=== PATIENT | male | born 1955 | race Asian ===

== ENCOUNTER 2016-12-05 22:32 | Inpatient (IN) | payer SELFPAY ==
[~2016-12-05] VITALS: Ht 170.2 cm; Wt 72.0 kg
[2016-12-05] MEDS ORDERED: ACETAMINOPHEN 325 MG TAB PO ONE (22:45)
[2016-12-05] MEDS ORDERED: diphenhydrAMINE HCL 50 MG/ML VIAL IVP ONE (22:45)
[2016-12-05] MEDS: SODIUM CHLORIDE 0.9% FLUSH 10 ML FLUSH IVF PRN ×2 (22:46→23:13)
--- NOTE | 2016-12-05 22:48 | RADRPT ---
EXAM DATE/TIME: 12/05/2016 22:31 [facility] COMPARISON: No previous studies available for comparison. INDICATIONS : Sudden onset headache with hypertension; rule out bleed. RADIATION DOSE: 56.35 CTDIvol (mGy) MEDICAL HISTORY : Non-responsive. SURGICAL HISTORY : Non-responsive. ENCOUNTER: Initial ACUITY: 1 day PAIN SCALE: Non-responsive LOCATION: cranial TECHNIQUE: Multiple contiguous axial images were obtained of the head. Using automated exposure control and adj ustment of the mA and/or kV according to patient size, radiation dose was kept as low as reasonably a chievable to obtain optimal diagnostic quality images. FINDINGS: CEREBRUM: The ventricles are normal for age. No evidence of midline shift, mass lesion, hemorrhage or acute in farction. No extra-axial fluid collections are seen. POSTERIOR FOSSA: The cerebellum and brainstem are intact. The 4th ventricle is midline. The cerebellopontine angle i s unremarkable. EXTRACRANIAL: The visualized portion of the orbits is intact. SKULL: The calvaria is intact. No evidence of skull fracture. CONCLUSION: No acute disease. Gilmar Richardson MD on December 05, 2016 at 22:46 Board Certified Radiologist. This report was verified electronically.
[2016-12-05 22:53] VITALS: BP 140/87; PULSE 70; RESP 18; TEMP 98.3; O2SAT 99
[2016-12-05] MEDS ORDERED: PROCHLORPERAZINE INJ 10 MG/2 ML VIAL IV PUSH ONE (23:00)
[2016-12-05 23:13] VITALS: RESP 16; O2SAT 98
--- NOTE | 2016-12-05 23:19 | PD ---
HPI Chief Complaint: Neuro Symptoms/ Deficits Time Seen by Provider: 22:35 Travel History International Travel<30 days: No Contact w/Intl Traveler<30days: No Traveled to known affect area: No History of Present Illness HPI The patient is a 61-year-old predominantly Georgian speaking male. Translation services provided to EMS by the patient's and by the [employer] phone translation service. The patient reports a sudden onset right headache in the parietal occipital distribution along with neck pain. Projectile vomiting was observed by EMS. He felt weak suddenly fell to the ground. Vertiginous dizziness is reported. EMS reports his blood pressure at that time was 182/95. EMS also reports some twitching movements towards the right side however the patient was conscious throughout the episode. Episode lasted a few seconds. Patient reports eating [place] food prior to onset of symptoms. He has 3 months prior a similar episode occurred, predominantly vertiginous dizziness PFSH Social History Tobacco Use: No Allergies-Medications (Allergen,Severity, Reaction): Coded Allergies: No Known Allergies (Unverified , 12/05/16) Reported Meds & Prescriptions Reported Meds & Active Scripts Active No Active Prescriptions or Reported Medications Review of Systems Except as stated in HPI: all other systems reviewed are Neg General / Constitutional: No: Fever, Chills HENT: Positive: Headaches, Vertigo Cardiovascular: No: Chest Pain or Discomfort Physical Exam Narrative GENERAL: 61-year-old male Georgian speaking well-nourished well-developed moderate distress SKIN: Warm and dry. HEAD: Atraumatic. Normocephalic. EYES: Pupils equal and round. No scleral icterus. No injection or drainage. Minimal horizontal nystagmus toward right. ENT: No nasal bleeding or discharge. Mucous membranes pink and moist. NECK: Trachea midline. No JVD. CARDIOVASCULAR: Regular rate and rhythm. RESPIRATORY: No accessory muscle use. Clear to auscultation. Breath sounds equal bilaterally. GASTROINTESTINAL: Abdomen soft, non-tender, nondistended. Hepatic and splenic margins not palpable. MUSCULOSKELETAL: Extremities without clubbing, cyanosis, or edema. No obvious deformities. NEUROLOGICAL: Cranial nerves III through XII are normal. Patient has no pronator drift. Motor function in all 4 extremities is 5 over 5. Tests of cerebellar function intact. Family confirms that his speech is normal. Memory mentation normal. PSYCHIATRIC: Appropriate mood and affect; insight and judgment normal. Data Data Last Documented VS Vital Signs Date Time Temp Pulse Resp B/P Pulse Ox O2 Delivery O2 Flow Rate FiO2 12/06/16 02:00 72 18 140/77 95 Nasal Cannula 3 12/05/16 22:53 98.3 Vital signs reviewed Orders Complete Blood Count With Diff (12/05/16 22:35) Comprehensive Metabolic Panel (12/05/16 22:35) Prothrombin Time / Inr (Pt) (12/05/16 22:35) Act Partial Throm Time (Ptt) (12/05/16 22:35) Ct Brain W/O Iv Contrast(Rout) (12/05/16 22:35) Ecg Monitoring (12/05/16 22:35) Iv Access Insert/Monitor (12/05/16 22:35) Oximetry (12/05/16 22:35) Sodium Chloride 0.9% Flush (Ns Flush) (12/05/16 22:45) Acetaminophen (Tylenol) (12/05/16 22:45) Diphenhydramine Inj (Benadryl Inj) (12/05/16 22:45) Prochlorperazine Inj (Compazine Inj) (12/05/16 23:00) Sodium Chloride 0.9% Flush (Ns Flush) (12/05/16 23:30) Potassium Chloride (Kcl) (12/06/16 00:00) Potassium Chlor 20 Meq Premix (Kcl 20 Me (12/06/16 00:00) Morphine Inj (Morphine Inj) (12/06/16 00:00) Cta Brain W Iv Contrast W 3d (12/06/16 ) Cta Neck W Iv Contrast W 3d (12/06/16 ) Iohexol 350 Inj (Omnipaque 350 Inj) (12/06/16 01:13) Lorazepam Inj (Ativan Inj) (12/06/16 03:15) Calcium Gluconate Inj (Calcium Gluconate (12/06/16 03:15) Meclizine (Antivert) (12/06/16 03:15) Place In Observation (12/06/16 ) Vital Signs (Adult) Q4H (12/06/16 03:21) Neuro Checks Q4H (12/06/16 03:21) Activity Oob With Assistance (12/06/16 03:21) Sand Operator / Telemetry .CONTINUOUS (12/06/16 03:21) Diet Regular Basic (12/06/16 Breakfast) Sodium Chlor 0.9% 1000 Ml Inj (Ns 1000 M (12/06/16 03:21) Sodium Chloride 0.9% Flush (Ns Flush) (12/06/16 03:30) Sodium Chloride 0.9% Flush (Ns Flush) (12/06/16 09:00) Ondansetron Inj (Zofran Inj) (12/06/16 03:30) Bisacodyl Supp (Dulcolax Supp) (12/06/16 03:30) Comprehensive Metabolic Panel (12/06/16 06:00) Complete Blood Count With Diff (12/07/16 06:00) Scd Bilateral/Knee High CASANDRA.BID (12/06/16 03:21) Monico Bilateral/Knee High CASANDRA.QSHIFT (12/06/16 03:21) Acetaminophen (Tylenol) (12/06/16 03:30) Acetamin-Hydrocod 325-5 Mg ([place] 5-325 (12/06/16 03:30) Morphine Inj (Morphine Inj) (12/06/16 03:30) Lorazepam Inj (Ativan Inj) (12/06/16 03:30) Consult Pt Eval & Treat (12/06/16 03:22) Urinalysis - C+S If Indicated (12/06/16 03:23) Admit Order (Ed Use Only) (12/06/16 04:14) Labs Laboratory Tests Test 12/05/16 23:00 White Blood Count 5.7 TH/MM3 Red Blood Count 3.99 MIL/MM3 Hemoglobin 12.1 GM/DL Hematocrit 35.7 % Mean Corpuscular Volume 89.4 FL Mean Corpuscular Hemoglobin 30.3 PG Mean Corpuscular Hemoglobin 33.9 % Concent Red Cell Distribution Width 13.3 % Platelet Count 161 TH/MM3 Mean Platelet Volume 8.4 FL Neutrophils (%) (Auto) 49.2 % Lymphocytes (%) (Auto) 42.2 % Monocytes (%) (Auto) 5.8 % Eosinophils (%) (Auto) 2.4 % Basophils (%) (Auto) 0.4 % Neutrophils # (Auto) 2.8 TH/MM3 Lymphocytes # (Auto) 2.4 TH/MM3 Monocytes # (Auto) 0.3 TH/MM3 Eosinophils # (Auto) 0.1 TH/MM3 Basophils # (Auto) 0.0 TH/MM3 CBC Comment DIFF FINAL Differential Comment Prothrombin Time 10.7 SEC Prothromb Time International 1.0 RATIO Ratio Activated Partial 25.2 SEC Thromboplast Time Sodium Level 144 MEQ/L Potassium Level 2.6 MEQ/L Chloride Level 110 MEQ/L Carbon Dioxide Level 23.4 MEQ/L Anion Gap 11 MEQ/L Blood Urea Nitrogen 20 MG/DL Creatinine 1.31 MG/DL Estimat Glomerular Filtration 56 ML/MIN Rate Random Glucose 108 MG/DL Calcium Level 7.3 MG/DL Protein Corrected Calcium 7.8 MG/DL Total Bilirubin 0.2 MG/DL Aspartate Amino Transf 16 U/L (AST/SGOT) Alanine Aminotransferase 22 U/L (ALT/SGPT) Alkaline Phosphatase 65 U/L Total Protein 6.2 GM/DL Albumin 3.3 GM/DL MDM Medical Decision Making Medical Screen Exam Complete: Yes Emergency Medical Condition: Yes Medical Record Reviewed: Yes Differential Diagnosis Central vertigo, peripheral vertigo, subarachnoid hemorrhage, migraine, cluster headache, tension headache Narrative Course CBC & BMP Diagram 12/05/16 23:00 Protein corrected calcium 7.8 LFTs otherwise essentially normal INR 1.0 EKG reveals a sinus rhythm normal axis intervals rate 64 Last 24 hours Impressions Neck CTA 12/06/16 0000 Signed Impressions: Service Date/Time: Tuesday, December 06, 2016 01:01 - CONCLUSION: No significant arterial vascular abnormality is identified in the neck. Trell Hill MD Head CTA 12/06/16 0000 Signed Impressions: Service Date/Time: Tuesday, December 06, 2016 01:01 - CONCLUSION: No acute intracranial vascular abnormality is identified. Trell Hill MD Head CT 12/05/16 2235 Signed Impressions: Service Date/Time: Monday, December 05, 2016 22:31 - CONCLUSION: No acute disease. Gilmar Richardson MD Patient refused LP. Head CTA normal. He received a therapy for cephalgia with good effect. Minimal persistent vertigo reported at approximately 3 AM. 1 mg Ativan ordered. The patient will be admitted due to the hypokalemia. IV and oral potassium orders placed. D/w Dr Wells Critical Care Narrative Aggregate critical care time was 35 minutes. Time to perform other separately billable procedures was not included in the critical care time. My time did not include minutes spent treating any other patients simultaneously or on activities that did not directly contribute to the patient's treatment. The services I provided to this patient were to treat and/or prevent clinically significant deterioration that could result in: Permanent neurologic deficit I provided critical care services requiring my management, as noted below: Chart data review, documentation time, medication orders and management, vital sign assessments/reviewing monitor data, ordering and reviewing lab tests, ordering and interpreting/reviewing x-rays and diagnostic studies, care of the patient and discussion of the patient with the admitting physicians. Diagnosis Primary Impression: Vertigo Additional Impressions: Nausea & vomiting Qualified Code: R11.2 - Nausea and vomiting, intractability of vomiting not specified, unspecified vomiting type Hypokalemia Hypocalcemia Cephalgia Qualified Code: R51 - Acute nonintractable headache, unspecified headache type Admitting Information Admitting Physician Requests: Admit Scripts No Active Prescriptions or Reported Meds Tom Martin MD Dec 05, 2016 23:19
[2016-12-05] MEDS ORDERED: SODIUM CHLORIDE 0.9% FLUSH 10 ML FLUSH IVF PRN (23:30)
[2016-12-05 23:33] LABS: AUTOMATED NEUTROPHIL # 2.8 TH/MM3 (1.8-7.7); BASOPHIL % 0.4 % (0.0-2.0); EOSINOPHIL # 0.1 TH/MM3 (0-0.4); EOSINOPHIL % 2.4 % (0.0-4.0); HEMATOCRIT 35.7 % (39.0-51.0); HEMO FLAGS DIFF FINAL; LYMPH % 42.2 % (9.0-44.0); LYMPHOCYTE # 2.4 TH/MM3 (1.0-4.8); MEAN CELL VOLUME 89.4 FL (80.0-100.0); MEAN CORPUSCULAR HEMOGLOBIN 30.3 PG (27.0-34.0); MEAN CORPUSCULAR HGB CONC 33.9 % (32.0-36.0); MONO % 5.8 % (0.0-8.0); NEUT % 49.2 % (16.0-70.0); PLATELET COUNT 161 TH/MM3 (150-450); RED BLOOD COUNT 3.99 MIL/MM3 (4.50-5.90); RED CELL DISTRIBUTION WIDTH 13.3 % (11.6-17.2); WHITE BLOOD COUNT 5.7 TH/MM3 (4.0-11.0)
[2016-12-05 23:40] LABS: APTT (PATIENT) 25.2 SEC (24.3-30.1); PROTHROMBIN TIME - PATIENT 10.7 SEC (9.8-11.6)
[2016-12-05 23:43] LABS: BICARBONATE 23.4 MEQ/L (21.0-32.0); CALCIUM-PROTEIN CORRECTED 7.8 MG/DL (8.5-10.1); TOTAL BILIRUBIN ADULT 0.2 MG/DL (0.2-1.0)
[2016-12-05 23:47] LABS: POTASSIUM 2.6 MEQ/L (3.5-5.1)
[2016-12-06] MEDS ORDERED: MORPHINE SULFATE 4 MG/ML INJ IV PUSH ONE
[2016-12-06] MEDS ORDERED: POTASSIUM CHLORIDE 20 MEQ CONTROLLED RELEASE TAB PO ONE
[2016-12-06] MEDS: SODIUM CHLORIDE 0.9% FLUSH 10 ML FLUSH IVF PRN (00:10)
[2016-12-06] MEDS: POTASSIUM CHLOR 20 MEQ PREMIX 100 ML IV SCH ×2 (00:10→01:59)
[2016-12-06] MEDS ORDERED: IOHEXOL 350 MG/ML 10 ML VIAL (for RAD DIAG) IV ONE (01:13)
[2016-12-06 02:00] VITALS: BP 140/77; PULSE 72; RESP 18; O2SAT 95
--- NOTE | 2016-12-06 02:37 | RADRPT ---
EXAM DATE/TIME: 12/06/2016 01:01 [facility] COMPARISON: No previous studies available for comparison. INDICATIONS : Sudden onset headache with hypertension. IV CONTRAST: 75 cc Omnipaque 350 (iohexol) IV ; Cumulative dose for multiple exams. RADIATION DOSE: 14.91 CTDIvol (mGy) ; Combined studies MEDICAL HISTORY : Renal insufficiency. SURGICAL HISTORY : None. ENCOUNTER: Initial ACUITY: 1 day PAIN SCALE: 8/10 LOCATION: cranial TECHNIQUE: Volumetric scanning was performed using a multi-row detector CT scanner. The data was post processed with a variety of visualization algorithms including full volume maximum intensity projection, multi -planar sliding thin slab reformation, curved planar reformation, and surface rendering techniques. Using automated exposure control and adjustment of the mA and/or kV according to patient size, radiat ion dose was kept as low as reasonably achievable to obtain optimal diagnostic quality images. FINDINGS: Anterior circulation: The internal carotid arteries demonstrate mild atherosclerotic change. Right A1 segment is hypoplasti c. Anterior cerebral arteries are symmetric. The middle cerebral artery branches demonstrate symmetri c enhancement. No aneurysm or high-grade stenosis is identified. Posterior circulation: There is persistent circulation on the right. The left vertebral artery is dominant. The basila r artery and left posterior cerebral artery arteries demonstrate no significant stenosis or abnormali ty. No aneurysm is visualized. CONCLUSION: No acute intracranial vascular abnormality is identified. Trell Hill MD on December 06, 2016 at 2:31 Board Certified Radiologist. This report was verified electronically.
--- NOTE | 2016-12-06 02:48 | RADRPT ---
EXAM DATE/TIME: 12/06/2016 01:01 [facility] COMPARISON: No previous studies available for comparison. INDICATIONS : Sudden onset headache with hypertension; IV CONTRAST: 75 cc Omnipaque 350 (iohexol) IV ; Cumulative dose for multiple exams. RADIATION DOSE: 14.91 CTDIvol (mGy) ; Combined studies MEDICAL HISTORY : Renal insufficiency. SURGICAL HISTORY : None. ENCOUNTER: Initial ACUITY: 1 day PAIN SCALE: 8/10 LOCATION: cranial Elevated flow velocities and ICA/CCA ratios have been found to correlate with increased degrees of vessel stenosis, calculated as percentage of diameter relative to a normal segment of distal ICA/CCA. TECHNIQUE: Volumetric scanning was performed using a multirow detector CT scanner. The data was post processed with a variety of visualization algorithms including full-volume maximum intensity projection, multip lanar sliding thin-slab reformation, curved-planar reformation, and surface-rendering techniques. Us ing automated exposure control and adjustment of the mA and/or kV according to patient size, radiatio n dose was kept as low as reasonably achievable to obtain optimal diagnostic quality images. FINDINGS: AORTIC ARCH: There is a three-vessel origin of the great vessels from the aorta. No evidence of ostial narrowing. RIGHT CAROTID: The common carotid artery is intact. The carotid bulb has a normal configuration without ulceration o r narrowing. There is minimal noncalcified plaque in the carotid bulb. The external carotid artery i s intact. LEFT CAROTID: The common carotid artery is intact. The carotid bulb has a normal configuration without ulceration or narrowing. The internal carotid artery lumen is smooth without stenosis. The external carotid ar ganga is intact. VERTEBRALS: The left vertebral artery is dominant. The vertebral arteries are less not fully visualized due to to venous contamination. CONCLUSION: No significant arterial vascular abnormality is identified in the neck. Trell Hill MD on December 06, 2016 at 2:44 Board Certified Radiologist. This report was verified electronically.
[2016-12-06] MEDS ORDERED: CALCIUM GLUCONATE 10% 1 GM/10 ML VIAL IV PUSH ONE (03:15)
[2016-12-06] MEDS ORDERED: MECLIZINE HCL 25 MG TAB PO PRN (03:15)
[2016-12-06] MEDS ORDERED: LORazepam 2 MG/ML VIAL IV PUSH ONE (03:15)
[2016-12-06] MEDS ORDERED: ONDANSETRON HCL 4 MG/2 ML VIAL IVP PRN (03:30)
[2016-12-06] MEDS ORDERED: MORPHINE SULFATE 4 MG/ML INJ IV PRN (03:30)
[2016-12-06] MEDS ORDERED: SODIUM CHLORIDE 0.9% FLUSH 10 ML FLUSH IV FLUSH PRN (03:30)
[2016-12-06] MEDS ORDERED: ACETAMINOPHEN/HYDROcodone 325 MG/5 MG TAB PO PRN (03:30)
[2016-12-06] MEDS ORDERED: BISACODYL 10 MG SUPP RECTAL PRN (03:30)
[2016-12-06] MEDS ORDERED: LORazepam 2 MG/ML VIAL IV PUSH PRN (03:30)
--- NOTE | 2016-12-06 03:56 | HHI.HP ---
[facility] No Primary Care Physician Admission Diagnosis Diagnoses: (1) Vertigo Diagnosis: Principal (2) Nausea & vomiting Diagnosis: Principal (3) Hypocalcemia Diagnosis: Principal (4) Hypokalemia Diagnosis: Principal (5) MIGUEL (acute kidney injury) Diagnosis: Principal Travel History International Travel<30 Days: No Contact w/Intl Traveler <30 Da: No Traveled to Known Affected Are: No History of Present Illness This is a 61-year-old French male with no significant PMH was brought to the ER by EMS secondary to acute onset of headache, dizziness, nausea and vomiting starting earlier this evening. Pt is non-Indonesian speaking, history obtained from [employer] services, pt's and sons also available for translation. Per report, pt and visiting [facility], had dinner at [employer], shortly after pt complained of dizziness, headache and had multiple episodes of nausea/vomiting. On arrival, BP 140/87, HR 70, O2 sat 99% on RA, Afebrile. CBC essentially unremarkable. K+ 2.6. Creatinine 1.31, no previous labs for comparison. Ca 7.3. INR 1.0. CT Head negative for acute findings. In light of symptoms, pt offered LP by ER physician, however pt declined. CTA Head/Neck negative for acute findings. S/p Compazine, Benadryl and Morphine w/ some improvement. Review of Systems Except as stated in HPI: all other systems reviewed are Neg ROS: 14 point review of systems otherwise negative. Past Family Social History Past Medical History PMH: None Past Surgical History PAST SURGICAL HISTORY: None Allergies: Coded Allergies: No Known Allergies (Unverified , 12/05/16) Family History PAST FAMILY HISTORY: Reviewed. No h/o DM or CAD Social History PAST SOCIAL HISTORY: Negative for alcohol, tobacco or drugs. Physical Exam Vital Signs Vital Signs Date Time Temp Pulse Resp B/P Pulse Ox O2 Delivery O2 Flow Rate FiO2 12/06/16 02:00 72 18 140/77 95 Nasal Cannula 3 12/05/16 23:13 16 98 Nasal Cannula 3 12/05/16 22:53 98.3 70 18 140/87 99 Physical Exam PE: GENERAL: Middle-aged male in no acute distress, resting comfortably after medications. HEENT: PERRLA, EOMI. No scleral icterus or conjunctival pallor. No lid lag or facial droop. CARDIOVASCULAR: Regular rate and rhythm. No obvious murmurs to auscultation. No chest tenderness to palpation. RESPIRATORY: No obvious rhonchi or wheezing. Clear to auscultation. Breath sounds equal bilaterally. GASTROINTESTINAL: Abdomen soft, non-tender, nondistended. BS normal. MUSCULOSKELETAL: Extremities without clubbing, cyanosis, or edema. No obvious deformities. NEUROLOGICAL: Sleeping, easily arousable. No focal neurologic deficits. Moving both upper and lower extremities spontaneously. Laboratory Laboratory Tests Test 12/05/16 23:00 White Blood Count 5.7 Red Blood Count 3.99 Hemoglobin 12.1 Hematocrit 35.7 Mean Corpuscular Volume 89.4 Mean Corpuscular Hemoglobin 30.3 Mean Corpuscular Hemoglobin 33.9 Concent Red Cell Distribution Width 13.3 Platelet Count 161 Mean Platelet Volume 8.4 Neutrophils (%) (Auto) 49.2 Lymphocytes (%) (Auto) 42.2 Monocytes (%) (Auto) 5.8 Eosinophils (%) (Auto) 2.4 Basophils (%) (Auto) 0.4 Neutrophils # (Auto) 2.8 Lymphocytes # (Auto) 2.4 Monocytes # (Auto) 0.3 Eosinophils # (Auto) 0.1 Basophils # (Auto) 0.0 CBC Comment DIFF FINAL Differential Comment Prothrombin Time 10.7 Prothromb Time International 1.0 Ratio Activated Partial 25.2 Thromboplast Time Sodium Level 144 Potassium Level 2.6 Chloride Level 110 Carbon Dioxide Level 23.4 Anion Gap 11 Blood Urea Nitrogen 20 Creatinine 1.31 Estimat Glomerular Filtration 56 Rate Random Glucose 108 Calcium Level 7.3 Protein Corrected Calcium 7.8 Total Bilirubin 0.2 Aspartate Amino Transf 16 (AST/SGOT) Alanine Aminotransferase 22 (ALT/SGPT) Alkaline Phosphatase 65 Total Protein 6.2 Albumin 3.3 Result Diagram: 12/05/16229912/05/162299 Assessment and Plan Problem List: (1) Vertigo ICD Code: R42 Status: Acute (2) Nausea & vomiting ICD Code: R11.2 Status: Acute (3) Hypokalemia ICD Code: E87.6 Status: Acute (4) Hypocalcemia ICD Code: E83.51 Status: Acute (5) MIGUEL (acute kidney injury) ICD Code: N17.9 Status: Acute Assessment and Plan A/P: 1. Vertigo: acute onset vertigo/dizziness w/ associated nausea/vomiting, reports similar episodes x3 months, has not been evaluated in the past. CT Head w/ no acute findings. LP offered by ER physician, however pt declined. CTA Head/Neck negative for acute findings, images reviewed by me. Admit for Observation, s/p Compazine/Benadryl w/ some improvement. Meclizine prn. Ativan prn if needed. IVF for hydration. PT for eval/tx 2. Nausea/Vomiting: secondary to above. Analgesics/antiemetics as needed. 3. Hypokalemia: K+ 2.6, s/p PO/IV replacement in ER, will recheck in am, replace if needed. 4. Hypocalcemia: Ca 7.3, will replace and recheck in am. 5. MIGUEL: Creatinine 1.31, no previous labs for comparison. Check U/a, IVF for hydration. Repeat labs in am. 6. DVT Prophylaxis: SCD/Teds. 7. Social work for d/c planning as needed. 8. Case discussed w/ ER physician at length. Trish Wells MD Dec 06, 2016 03:56
[2016-12-06] MEDS: SODIUM CHLOR 0.9% 1000 ML INJ 1,000 ML IV SCH ×3 (04:22→23:21)
[2016-12-06 06:14] VITALS: BP 130/80; PULSE 81; RESP 18; TEMP 97.9; O2SAT 95
[2016-12-06 07:15] LABS: ALKALINE PHOSPHATASE 63 U/L (45-117); ALT (GPT) 24 U/L (12-78); ANION GAP 8 MEQ/L (5-15); AST (GOT) 15 U/L (15-37); BLOOD UREA NITROGEN 19 MG/DL (7-18); CHLORIDE 106 MEQ/L (98-107); GLOMERULAR FILTRATION RATE 57 ML/MIN (>89); SODIUM (NA) 140 MEQ/L (136-145); TOTAL BILIRUBIN ADULT 0.4 MG/DL (0.2-1.0)
[2016-12-06] MEDS: SODIUM CHLORIDE 0.9% FLUSH 10 ML FLUSH IV FLUSH SCH ×2 (09:00→20:59)
[2016-12-06 11:52] VITALS: BP 137/88; PULSE 69; RESP 18; TEMP 98.2; O2SAT 96
[2016-12-06 12:58] VITALS: PULSE 70
[2016-12-06] MEDS: MECLIZINE HCL 25 MG TAB PO SCH ×2 (15:46→20:58)
--- NOTE | 2016-12-06 17:34 | HHI.PR ---
Subjective Remarks Follow-up for vertigo. Patient seen using translation services. RN at bedside. The patient continues to complain of dizziness and nausea whenever he changes position. He states the symptoms are improved some since yesterday. He is not sure what made him feel better. He hasn't really been able to eat anything today because he gets dizzy when he sits up. Denies any vomiting however. He denies any headache. He feels unsteady when he is on his feet. All questions answered. Objective Vitals Vital Signs Date Time Temp Pulse Resp B/P Pulse Ox O2 Delivery O2 Flow Rate FiO2 12/06/16 12:58 70 12/06/16 11:52 98.2 69 18 137/88 96 12/06/16 06:14 97.9 81 18 130/80 95 12/06/16 02:00 72 18 140/77 95 Nasal Cannula 3 12/05/16 23:13 16 98 Nasal Cannula 3 12/05/16 22:53 98.3 70 18 140/87 99 Result Diagram: 12/05/16 2300 12/06/16 0500 Imaging Last Impressions Neck CTA 12/06/16 0000 Signed Impressions: Service Date/Time: Tuesday, December 06, 2016 01:01 - CONCLUSION: No significant arterial vascular abnormality is identified in the neck. Trell Hill MD Head CTA 12/06/16 0000 Signed Impressions: Service Date/Time: Tuesday, December 06, 2016 01:01 - CONCLUSION: No acute intracranial vascular abnormality is identified. Trell Hill MD Head CT 12/05/16 2235 Signed Impressions: Service Date/Time: Monday, December 05, 2016 22:31 - CONCLUSION: No acute disease. Gilmar Richardson MD Objective Remarks GENERAL: Well-developed well-nourished. In no acute distress. SKIN: Warm and dry. No lesions noted. HEENT: Normocephalic. Pupils equal and round and reactive to light. Mucous membranes pink and moist. No nystagmus. CARDIOVASCULAR: Regular rate and rhythm. No murmur appreciated. RESPIRATORY: No accessory muscle use. Clear to auscultation. Breath sounds equal bilaterally. GASTROINTESTINAL: Abdomen soft, non-tender, nondistended. Bowel sounds x4. MUSCULOSKELETAL: No obvious deformities. No clubbing or cyanosis. No edema. NEUROLOGICAL: Awake and alert. No focal neurological deficits. Moves upper and lower extremities spontaneously. Normal speech. PSYCHIATRIC: Appropriate mood and affect; insight and judgment normal. A/P Problem List: (1) Vertigo ICD Code: R42 Status: Acute (2) Nausea & vomiting ICD Code: R11.2 Status: Acute (3) Hypokalemia ICD Code: E87.6 Status: Acute (4) Hypocalcemia ICD Code: E83.51 Status: Acute (5) MIGUEL (acute kidney injury) ICD Code: N17.9 Status: Acute Assessment and Plan 61-year-old Portuguese male with no significant PMH who presented with acute onset of dizziness and nausea Vertigo: acute onset vertigo/dizziness w/ associated nausea/vomiting. Reported similar episodes x3 months, has not been evaluated in the past. CT Head w/ no acute findings. LP offered by ER physician, however pt declined. CTA Head/ Neck negative for acute findings. Meclizine scheduled. Ativan prn. PT consulted, recommended vestibular rehabilitation and improved. Supportive care with IVF and antiemetics as needed. Hypokalemia: K+ 2.6, s/p PO/IV replacement, now 4.0. Improved. Hypocalcemia: Protein corrected calcium 7.8. Given IV calcium. Now 8.6. Improved. Suspected MIGUEL: Creatinine 1.3, no previous labs for comparison. IVF for hydration. Repeat labs in am. DVT Prophylaxis: SCD/Teds. Discharge Planning Discharge planning when clinically improved. Problem Qualifiers (1) Nausea & vomiting: Qualified Code: R11.2 - Nausea and vomiting, intractability of vomiting not specified, unspecified vomiting type Kg Jeter Dec 06, 2016 17:34 Bobo Harmon DO Dec 07, 2016 15:42
[2016-12-06 19:35] VITALS: BP 149/82; PULSE 91; RESP 18; TEMP 98.2; O2SAT 97
[2016-12-06 20:35] VITALS: PULSE 90
[2016-12-07] VITALS (8 sets, daily range): BP systolic 132–165; BP diastolic 78–95; PULSE 65–96; RESP 18–20; TEMP 97.8–98.2; O2SAT 95–96
[2016-12-07] MEDS: SODIUM CHLOR 0.9% 1000 ML INJ 1,000 ML IV SCH ×4 (01:42→22:00)
[2016-12-07] MEDS: MECLIZINE HCL 25 MG TAB PO SCH ×3 (05:05→20:18)
[2016-12-07 07:18] LABS: AUTOMATED NEUTROPHIL # 7.8 TH/MM3 (1.8-7.7); BASOPHIL % 0.2 % (0.0-2.0); HEMATOCRIT 37.3 % (39.0-51.0); HEMO FLAGS DIFF FINAL; LYMPH % 12.7 % (9.0-44.0); LYMPHOCYTE # 1.2 TH/MM3 (1.0-4.8); MEAN CELL VOLUME 88.8 FL (80.0-100.0); MEAN CORPUSCULAR HEMOGLOBIN 30.3 PG (27.0-34.0); MEAN CORPUSCULAR HGB CONC 34.1 % (32.0-36.0); MONO % 3.3 % (0.0-8.0); NEUT % 83.8 % (16.0-70.0); PLATELET COUNT 182 TH/MM3 (150-450); RED CELL DISTRIBUTION WIDTH 13.4 % (11.6-17.2); WHITE BLOOD COUNT 9.3 TH/MM3 (4.0-11.0)
[2016-12-07 07:42] LABS: ANION GAP 9 MEQ/L (5-15); BICARBONATE 22.8 MEQ/L (21.0-32.0); BLOOD UREA NITROGEN 17 MG/DL (7-18); CHLORIDE 108 MEQ/L (98-107); GLOMERULAR FILTRATION RATE 61 ML/MIN (>89); MAGNESIUM 2.2 MG/DL (1.5-2.5); POTASSIUM 3.5 MEQ/L (3.5-5.1); SODIUM (NA) 140 MEQ/L (136-145)
[2016-12-07] MEDS: SODIUM CHLORIDE 0.9% FLUSH 10 ML FLUSH IV FLUSH SCH ×2 (07:58→20:16)
--- NOTE | 2016-12-07 10:28 | HHI.PR ---
Subjective Remarks Follow-up for probable vertigo. Patient seen using translation services. The patient continues to complain of dizziness whenever he opens his eyes or tries to sit up. He feels a little bit better than yesterday. He has nausea with position changes, but he was able to drink some milk today. He denies any pain. He has not been able to ambulate yet. Objective Vitals Vital Signs Date Time Temp Pulse Resp B/P Pulse Ox O2 Delivery O2 Flow Rate FiO2 12/07/16 08:30 98.0 80 18 146/78 95 12/07/16 03:38 97.8 85 18 135/85 95 12/07/16 00:09 98.2 87 19 140/80 95 12/06/16 20:35 90 12/06/16 19:35 98.2 91 18 149/82 97 12/06/16 12:58 70 12/06/16 11:52 98.2 69 18 137/88 96 Result Diagram: 12/07/16 0611 12/07/16 0611 Imaging Last Impressions Neck CTA 12/06/16 0000 Signed Impressions: Service Date/Time: Tuesday, December 06, 2016 01:01 - CONCLUSION: No significant arterial vascular abnormality is identified in the neck. Trell Hill MD Head CTA 12/06/16 0000 Signed Impressions: Service Date/Time: Tuesday, December 06, 2016 01:01 - CONCLUSION: No acute intracranial vascular abnormality is identified. Trell Hill MD Head CT 12/05/16 2235 Signed Impressions: Service Date/Time: Monday, December 05, 2016 22:31 - CONCLUSION: No acute disease. Gilmar Richardson MD Objective Remarks GENERAL: Well-developed well-nourished. In no acute distress. English speaking. SKIN: Warm and dry. No lesions noted. HEENT: Normocephalic. Pupils equal and round and reactive to light. Mucous membranes pink and moist. Mild lateral nystagmus. CARDIOVASCULAR: Regular rate and rhythm. No murmur appreciated. RESPIRATORY: No accessory muscle use. Clear to auscultation. Breath sounds equal bilaterally. GASTROINTESTINAL: Abdomen soft, non-tender, nondistended. Bowel sounds x4. MUSCULOSKELETAL: No obvious deformities. No clubbing or cyanosis. No edema. NEUROLOGICAL: Awake and alert. No focal neurological deficits. Moves upper and lower extremities spontaneously. Normal speech. PSYCHIATRIC: Appropriate mood and affect; insight and judgment normal. A/P Problem List: (1) Vertigo ICD Code: R42 Status: Acute (2) Nausea & vomiting ICD Code: R11.2 Status: Acute (3) Hypokalemia ICD Code: E87.6 Status: Acute (4) Hypocalcemia ICD Code: E83.51 Status: Acute (5) MIGUEL (acute kidney injury) ICD Code: N17.9 Status: Acute Assessment and Plan 61-year-old English male with no significant PMH who presented with acute onset of dizziness and nausea Vertigo: acute onset vertigo/dizziness w/ associated nausea/vomiting. Reported similar episodes x3 months, has not been evaluated in the past. CT Head w/ no acute findings. LP offered by ER physician, however pt declined. CTA Head/ Neck negative for acute findings. Meclizine scheduled. Ativan/Valium prn. PT consulted, recommended vestibular rehabilitation when improved. Supportive care with IVF and antiemetics as needed. Consult neurology with persistent symptoms. Hypokalemia: K+ 2.6, s/p PO/IV replacement, now 4.0. Improved. Hypocalcemia: Protein corrected calcium 7.8. Given IV calcium. Now 8.6. Improved. Suspected MIGUEL: Creatinine 1.3, no previous labs for comparison. Creatinine slightly improved with IVF for hydration. Monitor I's and O's. Hyperglycemia: Mild. Suspect patient may have borderline diabetes mellitus. Check hemoglobin A1c. DVT Prophylaxis: SCD/Teds. Discharge Planning Discharge planning when clinically improved, not ready for DC. Problem Qualifiers (1) Nausea & vomiting: Qualified Code: R11.2 - Nausea and vomiting, intractability of vomiting not specified, unspecified vomiting type Kg Jeter Dec 07, 2016 10:28 Bobo Harmon DO Dec 07, 2016 15:19
[2016-12-07] MEDS ORDERED: DIAZEPAM 2 MG TAB PO ONE (10:30)
[2016-12-07 10:54] LABS: HEMOGLOBIN A1a 0.8 %; HEMOGLOBIN A1b 1.6 %; HEMOGLOBIN Ao 86.1 %; HEMOGLOBIN P3 3.7 %
[2016-12-07 15:19] LABS: BLOOD, URINE SMALL (NEG); COMMENT (UR) CULT NOT INDICATED; CULTURE IF INDICATED CULT NOT INDICATED; GLUCOSE,URINE NEG (NEG); KETONE, URINE NEG (NEG); NITRITE,URINE NEG (NEG); PH, URINE 6.5 (5.0-8.5); URINE COLOR COLORLESS (YELLW/STRAW)
[2016-12-07] MEDS ORDERED: POTASSIUM CHLORIDE 25 MEQ EFFERVESCENT TAB PO ONE (15:30)
[2016-12-07 16:01] LABS: FREE T4 1.05 NG/DL (0.76-1.46)
[2016-12-07] MEDS ORDERED: GADODIAMIDE PF 287 MG/ML 20 ML VIAL (for RAD MRI) IV ONE (16:47)
--- NOTE | 2016-12-07 18:42 | RADRPT ---
EXAM DATE/TIME: 12/07/2016 16:34 [facility] COMPARISON: No previous studies available for comparison. INDICATIONS : Ataxia. CONTRAST: 20 cc Omniscan (gadodiamide) IV MEDICAL HISTORY : None. SURGICAL HISTORY : None. ENCOUNTER: Initial ACUITY: 1 day PAIN SCORE: 0/10 LOCATION: cranial TECHNIQUE: Multiplanar, multisequence MRI of the brain was performed both prior to and following the administrat ion of paramagnetic contrast. FINDINGS: There is an acute infarct in the medial aspect of the right cerebellar hemisphere with some suspected hemosiderin deposition anteriorly which could represent a small component of hemorrhage. There is no significant mass effect or shift. No supratentorial infarct. No abnormal extra-axial fluid. No hydro cephalus. Minimal white matter ischemic changes. CONCLUSION: 1. Acute infarct in the medial aspect of the right cerebellar hemisphere. Dino Ch MD on December 07, 2016 at 18:36 Board Certified Radiologist. This report was verified electronically.
--- NOTE | 2016-12-07 18:47 | RADRPT ---
EXAM DATE/TIME: 12/07/2016 16:34 [facility] COMPARISON: No previous studies available for comparison. INDICATIONS : Ataxia. CONTRAST: 20 cc Omniscan (gadodiamide) IV MEDICAL HISTORY : None. SURGICAL HISTORY : None. ENCOUNTER: Initial ACUITY: 1 day PAIN SCORE: 0/10 LOCATION: neck Percent stenosis is calculated using the diameter of the stenotic region over the diameter of the nor mal distal internal carotid artery. TECHNIQUE: Bolus infused MRA of the extracranial circulation was performed using a neurovascular coil. Post pro cessing was performed including rotating subvolume maximum intensity projections of each carotid marion ry, rotating full volume maximum intensity projections of both carotid arteries, sagittal and coronal sliding thin slab reformations of each carotid artery, and left oblique sliding thin slab reformatio n through the aortic arch to include the origin of the arch branch vessels. FINDINGS: The great vessel origins are patent. Both common carotid artery, internal carotid artery and external carotid arteries are patent bilaterally. Left vertebral artery is dominant and patent. There is poor flow visualized in the proximal and mid right vertebral artery. It is unclear if this is due to tech nique but it could be partially thrombosed as well. CONCLUSION: 1. Poor flow in proximal and mid right vertebral artery. Cannot exclude thrombosis or stenosis. Left vertebral and carotid arteries are patent. Dino Ch MD on December 07, 2016 at 18:41 Board Certified Radiologist. This report was verified electronically.
--- NOTE | 2016-12-07 21:21 | EKG ---
Date Performed: 12/05/2016 Time Performed: 23:27:09 PTAGE: 61 years EKG: Sinus rhythm NORMAL ECG NO PREVIOUS TRACING DOCTOR: Wisam Ledezma Interpretating Date/Time 12/07/2016 21:19:53
[2016-12-07] MEDS: [UNRECOGNIZED DRUG - REMARK] SCH (22:00)
[2016-12-07 23:28] LABS: HDL CHOLESTEROL 44.9 MG/DL (40.0-60.0); LDL CHOLESTEROL 129 MG/DL (0-99)
[2016-12-07 23:31] LABS: CREATINE KINASE 82 U/L (39-308)
[2016-12-08] VITALS (12 sets, daily range): BP systolic 121–174; BP diastolic 70–94; PULSE 52–78; RESP 14–20; TEMP 98.1–98.4; O2SAT 95–96
--- NOTE | 2016-12-08 02:42 | RADRPT ---
EXAM DATE/TIME: 12/08/2016 02:28 [facility] COMPARISON: MRI BRAIN W & W/O CONTRAST, December 07, 2016, 16:34. CT BRAIN W/O CONTRAST, December 05, 2016, 22:31. INDICATIONS : Follow up stroke. RADIATION DOSE: 38.86 CTDIvol (mGy) MEDICAL HISTORY : Cerebrovascular disease. SURGICAL HISTORY : None. ENCOUNTER: Subsequent ACUITY: 1 day PAIN SCALE: 0/10 LOCATION: cranial TECHNIQUE: Multiple contiguous axial images were obtained of the head. Using automated exposure control and adj ustment of the mA and/or kV according to patient size, radiation dose was kept as low as reasonably a chievable to obtain optimal diagnostic quality images. FINDINGS: CEREBRUM: The ventricles are normal for age. No evidence of midline shift, mass lesion, hemorrhage or acute in farction. No extra-axial fluid collections are seen. POSTERIOR FOSSA: And nonhemorrhagic infarction is seen involving the medial portion of the right cerebellar hemisphere . This is stable from the prior MRI. EXTRACRANIAL: The visualized portion of the orbits is intact. SKULL: The calvaria is intact. No evidence of skull fracture. CONCLUSION: Stable nonhemorrhagic infarction involving the right cerebellar hemisphere. Mateo Connor Jr., MD on December 08, 2016 at 2:38 Board Certified Radiologist. This report was verified electronically.
[2016-12-08] MEDS ORDERED: CHLORHEXIDINE GLUCONATE 2 % 1 PACK (2 CLOTHS)(extra cloths) TOPICAL PRN (03:00)
[2016-12-08] MEDS: CHLORHEXIDINE GLUCONATE 2 % 1 PACK (2 CLOTHS)(taper/protocol) TOPICAL SCH (04:00)
[2016-12-08] MEDS: [UNRECOGNIZED DRUG - REMARK] SCH ×3 (06:00→22:00)
[2016-12-08] MEDS: MECLIZINE HCL 25 MG TAB PO SCH ×3 (06:24→21:00)
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
[2016-12-08 06:35] LABS: MAGNESIUM 2.3 MG/DL (1.5-2.5); POTASSIUM 3.6 MEQ/L (3.5-5.1)
[2016-12-08] MEDS: SODIUM CHLORIDE 0.9% FLUSH 10 ML FLUSH IV FLUSH SCH ×2 (08:21→20:54)
--- NOTE | 2016-12-08 09:13 | HHI.PR ---
Subjective Remarks sr Objective Vital Signs Date Time Temp Pulse Resp B/P Pulse Ox O2 Delivery O2 Flow Rate FiO2 12/08/16 06:00 56 12/08/16 04:00 52 12/08/16 04:00 98.2 52 14 150/89 95 12/08/16 02:49 98.2 64 16 146/90 95 12/08/16 00:23 98.3 67 20 121/73 95 12/07/16 20:02 96 12/07/16 19:30 98.0 88 20 132/80 95 12/07/16 17:00 65 12/07/16 16:08 98.0 69 20 165/95 95 12/07/16 11:24 98.0 66 20 145/85 96 I/O 12/07/16 12/07/16 12/07/16 12/08/16 12/08/16 12/08/16 07:00 15:00 23:00 07:00 15:00 23:00 Intake Total 1840 ml 525 ml Output Total 1925 ml 600 ml Balance -85 ml -75 ml Intake Oral 840 ml 250 ml IV Total 1000 ml 275 ml Output Urine Total 1925 ml 600 ml # Bowel Movements 0 Result Diagram: 12/07/16 0611 12/08/16 0508 Other Results r cbllr cva with on mri a hemorrhagic component very near inf 4th vent and mass effect on it mra left vert dom and r is small and ratty looking Objective Remarks awake alert still dizzy and gaviria pupil= no nystag vff 5/5 nad Assessment and Plan Assessment and Plan imp the r vert may have been cause of cva fu echo and holter needs statin hold asa for now ct no blood but some on mri observe for any afib nurse to print out some strips i dw nusu last noc stable overnoc Mich Varghese MD Dec 08, 2016 09:13
[2016-12-08] MEDS ORDERED: ASPIRIN 325 MG TAB PO SCH (09:15)
[2016-12-08] MEDS ORDERED: SODIUM PHOSPHATE INJ 30 MMOL in SODIUM CHLOR 0.9% 250 ML INJ 250 ML IV ONE (11:00)
[2016-12-08] MEDS: SODIUM CHLOR 0.9% 1000 ML INJ 1,000 ML IV SCH (11:14)
[2016-12-08 13:54] LABS: ANA SCREEN NEG (NEG)
[2016-12-08] MEDS: ACETAMINOPHEN 325 MG TAB PO PRN (14:41)
--- NOTE | 2016-12-08 15:10 | EC ---
Study Study Date:12/08/2016 STUDY CONCLUSIONS SUMMARY - Left ventricle: The cavity size was normal. Wall thickness was normal. Systolic function was normal. The estimated ejection fraction was in the range of 60% to 65%. Wall motion was normal; there were no regional wall motion abnormalities. - Aortic valve: Valve area: 2.72cm^2 (Vmax). If LV function is below 40, please consider prescribing an ACEI or ARB or document rationale for non-use. PROCEDURE DATA STUDY STATUS: Elective. Procedure: Transthoracic echocardiography. Image quality was fair. Scanning was performed from the parasternal, apical, and subcostal acoustic windows. Study completion: The patient tolerated the procedure well. Transthoracic echocardiography. M-mode, complete 2D, complete spectral Doppler, and color Doppler. Height: Height: 67in. Weight: Weight: 137.7lb. Body mass index: BMI: 21.6kg/m^2. Body surface area: BSA: 1.73m^2. Patient status: Inpatient. CARDIAC ANATOMY LEFT VENTRICLE: The cavity size was normal. Wall thickness was normal. Systolic function was normal. The estimated ejection fraction was in the range of 60% to 65%. Wall motion was normal; there were no regional wall motion abnormalities. AORTIC VALVE: Trileaflet; normal thickness leaflets. Doppler: Transvalvular velocity was within the normal range. There was no stenosis. No regurgitation. Valve area: 2.72cm^2 (Vmax). Indexed valve area: 1.57cm^2/m^2 (Vmax). AORTA: Aortic root: The aortic root was normal in size. MITRAL VALVE: Structurally normal valve. Doppler: Transvalvular velocity was within the normal range. There was no evidence for stenosis. Trace regurgitation. Peak gradient: 3mm Hg (D). LEFT ATRIUM: The atrium was normal in size. RIGHT VENTRICLE: The cavity size was normal. Wall thickness was normal. PULMONIC VALVE: Doppler: Transvalvular velocity was within the normal range. There was no evidence for stenosis. No regurgitation. TRICUSPID VALVE: Structurally normal valve. Doppler: Transvalvular velocity was within the normal range. Trace regurgitation. PULMONARY ARTERY: The main pulmonary artery was normal-sized. Systolic pressure was within the normal range. RIGHT ATRIUM: The atrium was normal in size. PERICARDIUM: There was no pericardial effusion. SYSTEMIC VEINS: Inferior vena cava: The vessel was normal in size. Patient weight: 137.7lb _Ejection fraction:_ 65-75% _Fractional shortening:_ 32% up to 5Kg 5-11.5Kg 11.6-22.9Kg 23-45Kg 45-57Kg Aortic Root 7-13 <17 13-22 17-27 17-27 LA diam 6-13 <23 24-38 33-47 37-40 RVID 10-17 7-15 7-15 7-18 8-17 LVIDd 12-22 <32 24-38 33-47 37-40 LVPW 2-4 3-6 5-7 6-8 7-8 IVS 2-4 3-6 5-7 6-8 7-8 BASIC MEASUREMENTS ADULT NORMAL Left ventricle LV internal dimension, ED, chordal *39.5 mm 43-52 level, PLAX LV internal dimension, ES, chordal 30 mm 23-38 level, PLAX Fractional shortening, chordal level, *24 % >29 PLAX LV posterior wall thickness, ED 7.32 mm IVS/LVPW ratio, ED 1 <1.3 Ventricular septum Septal thickness, ED 7.35 mm Aortic valve Leaflet separation 17 mm 15-26 BASIC MEASUREMENTS ADULT NORMAL Aortic valve Leaflet separation 17 mm 15-26 Aorta Root diameter, ED 29 mm 20-37 Left atrium Anterior-posterior dimension, ES 27 mm 19-40 Anterior-posterior dimension index, ES 1.56 cm/m^2 <2.2 LA/aortic root ratio 0.93 DOPPLER MEASUREMENTS ADULT NORMAL Main pulmonary artery Pressure, S 16 mm Hg =30 Aortic valve Peak velocity, S 141 cm/s Valve area, Vmax 2.72 cm^2 Valve area index, Vmax 1.57 cm^2/m^2 Mitral valve Peak E-wave velocity 87.4 cm/s Peak A-wave velocity 74.5 cm/s Deceleration time *113 ms 150-230 Peak gradient, D 3 mm Hg Peak E/A ratio 1.2 Maximal regurgitant velocity 271 cm/s Tricuspid valve Regurgitant peak velocity 172 cm/s Peak RV-RA gradient, S 12 mm Hg Maximal regurgitant velocity 172 cm/s Systemic veins Estimated CVP 10 mm Hg Right ventricle RV pressure, S 22 mm Hg <30 Pulmonic valve Peak velocity, S 124 cm/s LEGEND: Mean values are shown as u=mean value. Asterisk (*) wong values outside specified normal range. Prepared and signed by Lobo Hathaway [id number]
--- NOTE | 2016-12-08 15:51 | HHI.PR ---
Subjective Remarks The patient was resting in bed comfortably. Family was at the bedside. The patient did complain of pain behind his eyes. Otherwise he had no weakness in his upper or lower extremities and no numbness or tingling anywhere. His family was at the bedside and their questions were answered. Discussed with nursing. Objective Vitals Vital Signs Date Time Temp Pulse Resp B/P Pulse Ox O2 Delivery O2 Flow Rate FiO2 12/08/16 14:00 64 12/08/16 12:00 77 12/08/16 12:00 98.2 77 14 144/71 96 12/08/16 10:00 77 12/08/16 08:00 98.1 54 16 174/84 95 12/08/16 08:00 54 12/08/16 06:00 56 12/08/16 04:00 52 12/08/16 04:00 98.2 52 14 150/89 95 12/08/16 02:49 98.2 64 16 146/90 95 12/08/16 00:23 98.3 67 20 121/73 95 12/07/16 20:02 96 12/07/16 19:30 98.0 88 20 132/80 95 12/07/16 17:00 65 12/07/16 16:08 98.0 69 20 165/95 95 I/O 12/07/16 12/07/16 12/07/16 12/08/16 12/08/16 12/08/16 07:00 15:00 23:00 07:00 15:00 23:00 Intake Total 1840 ml 525 ml 950 ml Output Total 1925 ml 600 ml 1500 ml Balance -85 ml -75 ml -550 ml Intake Oral 840 ml 250 ml 300 ml IV Total 1000 ml 275 ml 650 ml Output Urine Total 1925 ml 600 ml 1500 ml # Bowel Movements 0 0 Result Diagram: 12/07/16 0611 12/08/16 0508 Imaging Last Impressions Head CT 12/08/16 0400 Signed Impressions: Service Date/Time: Thursday, December 08, 2016 02:28 - CONCLUSION: Stable nonhemorrhagic infarction involving the right cerebellar hemisphere. Mateo Connor Jr., MD Neck Magnetic Resonance Angiography 12/07/16 1324 Signed Impressions: Service Date/Time: Wednesday, December 07, 2016 16:34 - CONCLUSION: 1. Poor flow in proximal and mid right vertebral artery. Cannot exclude thrombosis or stenosis. Left vertebral and carotid arteries are patent. Dino Ch MD Brain MRI 12/07/16 1324 Signed Impressions: Service Date/Time: Wednesday, December 07, 2016 16:34 - CONCLUSION: 1. Acute infarct in the medial aspect of the right cerebellar hemisphere. Dino Ch MD Neck CTA 12/06/16 0000 Signed Impressions: Service Date/Time: Tuesday, December 06, 2016 01:01 - CONCLUSION: No significant arterial vascular abnormality is identified in the neck. Trell Hill MD Head CTA 12/06/16 0000 Signed Impressions: Service Date/Time: Tuesday, December 06, 2016 01:01 - CONCLUSION: No acute intracranial vascular abnormality is identified. Trell Hill MD Objective Remarks GENERAL: Well-developed well-nourished. In no acute distress. SKIN: Warm and dry. No lesions noted. HEENT: Normocephalic. Pupils equal and round and reactive to light. Mucous membranes pink and moist. CARDIOVASCULAR: Regular rate and rhythm. No murmur appreciated. RESPIRATORY: No accessory muscle use. Clear to auscultation. Breath sounds equal bilaterally. GASTROINTESTINAL: Abdomen soft, non-tender, nondistended. Bowel sounds x4. MUSCULOSKELETAL: No obvious deformities. No clubbing or cyanosis. No edema. NEUROLOGICAL: Awake and alert. No focal neurological deficits. Moves upper and lower extremities spontaneously, 5/5 strength. Normal speech. PSYCHIATRIC: Appropriate mood and affect; insight and judgment normal. Medications and IVs Current Medications Medications (Trade) Dose Ordered Sig/[place] Route Start Time Stop Time Status Last Admin (NS Flush) 2 ml UNSCH PRN IV FLUSH 12/06/16 03:30 (NS Flush) 2 ml BID IV FLUSH 12/06/16 09:00 (Zofran Inj) 4 mg Q6H PRN IVP 12/06/16 03:30 (Dulcolax Supp) 10 mg DAILY PRN RECTAL 12/06/16 03:30 (Tylenol) 650 mg Q6H PRN PO 12/06/16 03:30 12/08/16 14:41 ([place] 5-325 Mg) 1 tab Q4H PRN PO 12/06/16 03:30 Meclizine HCl 25 mg 25 mg Q8H PO 12/06/16 13:00 12/08/16 13:28 (NS 1000 ml Inj) 1,000 ml @ 75 mls/hr [id number] IV 12/07/16 22:00 12/08/16 11:14 Miscellaneous Information "NO BLOOD THINNERS FOR PT" Q8H .XX 12/07/16 22:00 Miscellaneous Information Patient in critical care unit? Ass... [id number] .XX 12/08/16 03:00 (Chlorhexidine 2% Cloth) 3 pack DAILY@04 TOPICAL 12/08/16 04:00 12/12/16 04:01 12/08/16 04:00 Chlorhexidine Gluconate 3 pack 3 pack UNSCH PRN TOPICAL 12/08/16 03:00 12/13/16 02:58 (Sodium Phosphate Inj/NS 250 ml Inj) 260 ml @ 27.5 mls/hr ONCE ONCE IV 12/08/16 11:00 12/08/16 20:27 12/08/16 11:13 A/P Problem List: (1) Vertigo ICD Code: R42 Status: Acute (2) Nausea & vomiting ICD Code: R11.2 Status: Acute (3) Hypokalemia ICD Code: E87.6 Status: Acute (4) Hypocalcemia ICD Code: E83.51 Status: Acute (5) MIGUEL (acute kidney injury) ICD Code: N17.9 Status: Acute Assessment and Plan Acute CVA Acute onset vertigo/dizziness w/ associated nausea/vomiting. Reported similar episodes x3 months, has not been evaluated in the past. CT Head w/ no acute findings. LP offered by ER physician, however pt declined. CTA Head/Neck negative for acute findings. Neurology was consulted. MRI showed: Acute infarct in the medial aspect of the right cerebellar hemisphere. MRA showed: Poor flow in proximal and mid right vertebral artery; Cannot exclude thrombosis or stenosis. The pt was transferred to the ICU. Echo with normal EF. - repeat MRI in the AM. - neurosurgery consult pending. - LDL elevated. Statin started. - PT/ OT. - ASA on hold in setting of questionable hemorrhage. - neuro checks. - follow up with neurosurgery. Hypokalemia/ Hypophosphatemia/ Hypocalcemia Possibly s/y decreased PO intake. - replete and monitor. MIGUEL Creatinine 1.3, no previous labs for comparison. - continue IVFs. - check urine sodium and creatinine. DVT Prophylaxis: SCD/Teds. Discharge Planning Awaiting further evaluation. Problem Qualifiers (1) Nausea & vomiting: Qualified Code: R11.2 - Nausea and vomiting, intractability of vomiting not specified, unspecified vomiting type Bobo Harmon DO Dec 08, 2016 15:51
[2016-12-08 15:55] LABS: RAPID PLASMA REAGIN SCREEN NON-REACTIVE (NON-REACTVE)
--- NOTE | 2016-12-08 20:40 | MB ---
cc: GRACE FRAZIER ROHIT K. M.D. DATE OF CONSULTATION 12/08/2016 REASON FOR CONSULTATION Right cerebellar infarct. HISTORY OF PRESENT ILLNESS A 61-year-old [place] gentleman who presented to the emergency room on 12/05/2016 with complaints of right-sided headache in the occipital aspect and neck pain along with vomiting. He also reported feeling dizziness with vertigo. Prior to that for the past 3 months he has had similar episodes mainly comprising of vertigo and dizziness. Initial CT scan of the head obtained did not reveal any obvious abnormalities and neurology service was consulted and further workup with an MRI scan of the brain on 12/07/2016 revealed an area of infarct in the right medial aspect of the cerebellar hemisphere and vermis with a partial compression of the fourth ventricle but no obstructive hydrocephalus with normal size of the ventricles. This appears to be related to the right vertebral artery stenosis and possibly thrombus. Followup CT scan of the head this morning does not reveal any progression of this infarct or development of any hydrocephalus. He has been started on aspirin therapy by the neurologist along with Lipitor. He is awake and alert and interactive although does not speak Wol[place] well but does understand some words. PAST MEDICAL HISTORY Unremarkable. MEDICATIONS PRIOR TO ADMISSION None ALLERGIES NO KNOWN DRUG ALLERGIES. SOCIAL HISTORY Denies any alcohol or tobacco use. He is and is visiting from [place]. REVIEW OF SYSTEMS Pertinent positives mentioned in history present illness. REVIEW OF SYSTEMS Pertinent positives mentioned in the history of present illness headaches and vertigo and dizziness and nausea, unsteadiness in his gait. These symptoms have improved since admission and he is not tolerating a diet. He denies any incontinence. He denies any numbness or paresthesias in the face, arms or legs. Denies any double vision or blurred vision or any difficulty swallowing. LABORATORY FINDINGS White blood cell count 9.3, hemoglobin 12.7. Sed rate of 7. Platelet count of 182. PT 10.7, INR 1.0, PT 25.2. Sodium 144, potassium 3.6, BUN 8, creatinine 1.34, glucose 89. PHYSICAL EXAMINATION VITAL SIGNS: Temperature 98.2, pulse is 77, respiratory 14, blood pressure 144/71, oxygen saturation 96% on room air. HEAD: Normocephalic, atraumatic. NECK: Supple. No guarding or rigidity. CHEST: Clear to incision bilaterally. HEART: Regular rate and rhythm. Normal S1-S2. ABDOMEN: Soft, nontender. EXTREMITIES: No cyanosis or edema. NEUROLOGIC: He is awake, alert. Pupils equal, reactive. Extraocular muscles intact with no nystagmus. Face is symmetric. Tongue is midline. He moves all four extremities at 5/5 strength. Negative Babinski. Light touch sensation is intact. 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 Follow-up imaging scan does not reveal any progression of stroke or edema development. PLAN The patient does not require any neurosurgical intervention at this point. We will defer management of the stroke and the right vertebral artery stenosis to the neurology service. He will also require rehabilitation in particular physical therapy. Neurosurgery will be available as needed at this point. MD MARILIA Weiner/CÉSAR /4:46 PM /8:21 PM
[2016-12-08] MEDS: ATORVASTATIN 80 MG TAB PO SCH (21:00)
[2016-12-09] VITALS (13 sets, daily range): BP systolic 136–169; BP diastolic 66–100; PULSE 52–84; RESP 16–31; TEMP 98.3–98.9; O2SAT 94–100
[2016-12-09] MEDS: SODIUM CHLOR 0.9% 1000 ML INJ 1,000 ML IV SCH (00:40)
[2016-12-09] MEDS: CHLORHEXIDINE GLUCONATE 2 % 1 PACK (2 CLOTHS)(taper/protocol) TOPICAL SCH (04:00)
[2016-12-09] MEDS: MECLIZINE HCL 25 MG TAB PO SCH ×3 (04:17→19:42)
[2016-12-09 05:09] LABS: HEMATOCRIT 37.6 % (39.0-51.0); MEAN CORPUSCULAR HEMOGLOBIN 30.8 PG (27.0-34.0); PLATELET COUNT 178 TH/MM3 (150-450); RED BLOOD COUNT 4.28 MIL/MM3 (4.50-5.90); RED CELL DISTRIBUTION WIDTH 13.4 % (11.6-17.2); REVIEW FLAG FINAL; WHITE BLOOD COUNT 7.3 TH/MM3 (4.0-11.0)
[2016-12-09 05:23] LABS: BICARBONATE 26.4 MEQ/L (21.0-32.0); MAGNESIUM 2.2 MG/DL (1.5-2.5); POTASSIUM 3.4 MEQ/L (3.5-5.1)
[2016-12-09] MEDS: [UNRECOGNIZED DRUG - REMARK] SCH ×2 (06:00→20:37)
--- NOTE | 2016-12-09 08:11 | HHI.PR ---
Subjective Remarks sr Objective Vital Signs Date Time Temp Pulse Resp B/P Pulse Ox O2 Delivery O2 Flow Rate FiO2 12/09/16 06:00 52 12/09/16 04:00 69 12/09/16 04:00 98.5 69 19 169/95 94 12/09/16 02:00 52 12/09/16 00:00 62 12/09/16 00:00 98.3 62 16 142/71 94 12/08/16 22:00 55 12/08/16 20:00 98.4 59 17 142/83 95 12/08/16 20:00 70 12/08/16 18:00 78 12/08/16 16:00 67 12/08/16 16:00 98.1 67 20 143/94 96 12/08/16 14:00 64 12/08/16 12:00 77 12/08/16 12:00 98.2 77 14 144/71 96 12/08/16 10:00 77 I/O 12/08/16 12/08/16 12/08/16 12/09/16 12/09/16 12/09/16 07:00 15:00 23:00 07:00 15:00 23:00 Intake Total 525 ml 950 ml 1032 ml 745 ml Output Total 600 ml 1500 ml 700 ml 1300 ml Balance -75 ml -550 ml 332 ml -555 ml Intake Oral 250 ml 300 ml 240 ml 240 ml IV Total 275 ml 650 ml 792 ml 505 ml Output Urine Total 600 ml 1500 ml 700 ml 1300 ml # Bowel Movements 0 0 0 0 Result Diagram: 12/09/16 0435 12/09/16 0435 Objective Remarks awake alert still dizzy and gaviria gone pupil= no nystag vff 5/5 nad Assessment and Plan Assessment and Plan imp the r vert may have been cause of cva fu echo nl and holter pend on statin hold asa for now ct no blood but some on mri observe for any afib nurse to print out some strips i dw nusu last noc stable overnoc if mri stable could go to tele floor oob PT Mich Vargehse MD Dec 09, 2016 08:11
[2016-12-09] MEDS: SODIUM CHLORIDE 0.9% FLUSH 10 ML FLUSH IV FLUSH SCH ×2 (09:00→19:41)
--- NOTE | 2016-12-09 10:40 | RADRPT ---
EXAM DATE/TIME: 12/09/2016 10:13 [place] COMPARISON: CT BRAIN W/O CONTRAST, December 08, 2016, 2:28. INDICATIONS : CVA. Hx of nausea and vomiting. MEDICAL HISTORY : None. SURGICAL HISTORY : None. ENCOUNTER: Subsequent ACUITY: 3 day PAIN SCORE: 0/10 LOCATION: head TECHNIQUE: Multiplanar, multisequence MRI of the brain was performed without contrast. FINDINGS: The craniocervical junction and midline structures are unremarkable. There is acute infarct involving the right PICA distribution involving the entire course of the vessel as well as the cerebellar verm is. Susceptibility weighted images demonstrate hemorrhage within the cerebellar vermis with a fluid f luid level. No supratentorial infarct is identified. No excessive fluid collections are present. Ther e are no signs of herniation. CONCLUSION: 1. Acute hemorrhagic infarct involving the right cerebellum in the PICA artery distribution without s ignificant mass effect or midline shift. Mich Walden MD on December 09, 2016 at 10:36 Board Certified Radiologist. This report was verified electronically.
[2016-12-09] MEDS ORDERED: POTASSIUM CHLORIDE 25 MEQ EFFERVESCENT TAB PO ONE (15:45)
[2016-12-09] MEDS ORDERED: LABETALOL HCL 100 MG/20 ML VIAL IV PUSH PRN (16:00)
[2016-12-09] MEDS ORDERED: hydrALAZINE HCL 20 MG/ML VIAL IV PUSH PRN (16:00)
--- NOTE | 2016-12-09 16:09 | HHI.PR ---
Subjective Remarks The pt was resting in bed comfortably. He was dizzy. He had pain in his right eye. No vision changes. Family at the bedside. Discussed with son over the phone. Discussed with nursing and neurology. Objective Vitals Vital Signs Date Time Temp Pulse Resp B/P Pulse Ox O2 Delivery O2 Flow Rate FiO2 12/09/16 14:02 77 12/09/16 12:00 98.6 55 19 143/66 98 12/09/16 12:00 55 12/09/16 10:00 76 12/09/16 08:00 98.9 74 20 138/82 96 12/09/16 08:00 74 12/09/16 06:00 52 12/09/16 04:00 69 12/09/16 04:00 98.5 69 19 169/95 94 12/09/16 02:00 52 12/09/16 00:00 62 12/09/16 00:00 98.3 62 16 142/71 94 12/08/16 22:00 55 12/08/16 20:00 98.4 59 17 142/83 95 12/08/16 20:00 70 12/08/16 18:00 78 I/O 12/08/16 12/08/16 12/08/16 12/09/16 12/09/16 12/09/16 07:00 15:00 23:00 07:00 15:00 23:00 Intake Total 525 ml 950 ml 1032 ml 745 ml 1077 ml Output Total 600 ml 1500 ml 700 ml 1300 ml 700 ml Balance -75 ml -550 ml 332 ml -555 ml 377 ml Intake Oral 250 ml 300 ml 240 ml 240 ml 480 ml IV Total 275 ml 650 ml 792 ml 505 ml 597 ml Output Urine Total 600 ml 1500 ml 700 ml 1300 ml 700 ml # Bowel Movements 0 0 0 0 Result Diagram: 12/09/16 0435 12/09/16 0435 Imaging Last Impressions Brain MRI 12/09/16 0600 Signed Impressions: Service Date/Time: Friday, December 09, 2016 10:13 - CONCLUSION: 1. Acute hemorrhagic infarct involving the right cerebellum in the PICA artery distribution without significant mass effect or midline shift. Mich Walden MD Head CT 12/08/16 0400 Signed Impressions: Service Date/Time: Thursday, December 08, 2016 02:28 - CONCLUSION: Stable nonhemorrhagic infarction involving the right cerebellar hemisphere. Mateo Connor Jr., MD Neck Magnetic Resonance Angiography 12/07/16 1324 Signed Impressions: Service Date/Time: Wednesday, December 07, 2016 16:34 - CONCLUSION: 1. Poor flow in proximal and mid right vertebral artery. Cannot exclude thrombosis or stenosis. Left vertebral and carotid arteries are patent. Dino Ch MD Neck CTA 12/06/16 0000 Signed Impressions: Service Date/Time: Tuesday, December 06, 2016 01:01 - CONCLUSION: No significant arterial vascular abnormality is identified in the neck. Trell Hill MD Head CTA 12/06/16 0000 Signed Impressions: Service Date/Time: Tuesday, December 06, 2016 01:01 - CONCLUSION: No acute intracranial vascular abnormality is identified. Trell Hill MD Objective Remarks GENERAL: Well-developed well-nourished. In no acute distress. SKIN: Warm and dry. No lesions noted. HEENT: Normocephalic. Pupils equal and round and reactive to light. Mucous membranes pink and moist. CARDIOVASCULAR: Regular rate and rhythm. No murmur appreciated. RESPIRATORY: No accessory muscle use. Clear to auscultation. Breath sounds equal bilaterally. GASTROINTESTINAL: Abdomen soft, non-tender, nondistended. Bowel sounds x4. MUSCULOSKELETAL: No obvious deformities. No clubbing or cyanosis. No edema. NEUROLOGICAL: Awake and alert. No focal neurological deficits. Moves upper and lower extremities spontaneously, 5/5 strength. Normal speech. PSYCHIATRIC: Appropriate mood and affect; insight and judgment normal. Medications and IVs Current Medications Medications (Trade) Dose Ordered Sig/[place] Route Start Time Stop Time Status Last Admin (NS Flush) 2 ml UNSCH PRN IV FLUSH 12/06/16 03:30 (NS Flush) 2 ml BID IV FLUSH 12/06/16 09:00 12/09/16 09:00 (Zofran Inj) 4 mg Q6H PRN IVP 12/06/16 03:30 (Dulcolax Supp) 10 mg DAILY PRN RECTAL 12/06/16 03:30 (Tylenol) 650 mg Q6H PRN PO 12/06/16 03:30 12/08/16 14:41 ([place] 5-325 Mg) 1 tab Q4H PRN PO 12/06/16 03:30 (Antivert) 25 mg Q8H PO 12/06/16 13:00 12/09/16 12:40 Miscellaneous Information "NO BLOOD THINNERS FOR PT" Q8H .XX 12/07/16 22:00 Miscellaneous Information Patient in critical care unit? Ass... Q361D .XX 12/08/16 03:00 (Chlorhexidine 2% Cloth) 3 pack DAILY@04 TOPICAL 12/08/16 04:00 12/12/16 04:01 12/09/16 04:00 (Chlorhexidine 2% Cloth) 3 pack UNSCH PRN TOPICAL 12/08/16 03:00 12/13/16 02:58 (Lipitor) 80 mg HS PO 12/08/16 21:00 12/08/16 21:00 A/P Problem List: (1) Vertigo ICD Code: R42 Status: Acute (2) Nausea & vomiting ICD Code: R11.2 Status: Acute (3) Hypokalemia ICD Code: E87.6 Status: Acute (4) Hypocalcemia ICD Code: E83.51 Status: Acute (5) MIGUEL (acute kidney injury) ICD Code: N17.9 Status: Acute Assessment and Plan Acute CVA Acute onset vertigo/dizziness w/ associated nausea/vomiting. Reported similar episodes x3 months, has not been evaluated in the past. CT Head w/ no acute findings. LP offered by ER physician, however pt declined. CTA Head/Neck negative for acute findings. Neurology was consulted. MRI showed: Acute infarct in the medial aspect of the right cerebellar hemisphere. MRA showed: Poor flow in proximal and mid right vertebral artery; Cannot exclude thrombosis or stenosis. The pt was transferred to the ICU. Echo with normal EF. MRI 12/09 showed : Acute hemorrhagic infarct involving the right cerebellum in the PICA artery distribution without significant mass effect or midline shift. No surgical intervention indicated per neurosurgery. - OK to transfer to telemetry per neuro. - LDL elevated. Statin started. - PT/ OT. - ASA on hold in setting of hemorrhage. - neuro checks. - blood pressure control with Vasotec and clonidine prn. Lisinopril 10 mg daily started. Adjust as needed. - pain control as needed for headache. Hypokalemia/ Hypophosphatemia/ Hypocalcemia Possibly s/y decreased PO intake. - replete and monitor. Stable 12/09. MIGUEL Creatinine 1.3, no previous labs for comparison. - d/c IVFs. - check urine sodium and creatinine. - monitor BMP while on lisinopril. DVT Prophylaxis: SCD/Teds. Discharge Planning Transfer to floor. Problem Qualifiers (1) Nausea & vomiting: Qualified Code: R11.2 - Nausea and vomiting, intractability of vomiting not specified, unspecified vomiting type Bobo Harmon DO Dec 09, 2016 16:09
[2016-12-09] MEDS ORDERED: ENALAPRILAT 1.25 MG/ML VIAL IV PUSH PRN (16:15)
[2016-12-09] MEDS ORDERED: cloNIDine HCL 0.2 MG TAB PO PRN (16:15)
[2016-12-09] MEDS: LISINOPRIL 10 MG TAB PO SCH (16:55)
[2016-12-09] MEDS: ATORVASTATIN 80 MG TAB PO SCH (19:42)
[2016-12-10] VITALS (8 sets, daily range): BP systolic 118–143; BP diastolic 74–96; PULSE 63–93; RESP 12–18; TEMP 96–97.9; O2SAT 93–98
[2016-12-10] MEDS: CHLORHEXIDINE GLUCONATE 2 % 1 PACK (2 CLOTHS)(taper/protocol) TOPICAL SCH (03:13)
[2016-12-10] MEDS: [UNRECOGNIZED DRUG - REMARK] SCH ×2 (06:00→13:29)
[2016-12-10] MEDS: MECLIZINE HCL 25 MG TAB PO SCH ×3 (06:14→21:22)
[2016-12-10 07:58] LABS: HEMATOCRIT 40.2 % (39.0-51.0); MEAN CELL VOLUME 88.7 FL (80.0-100.0); MEAN CORPUSCULAR HEMOGLOBIN 30.1 PG (27.0-34.0); PLATELET COUNT 188 TH/MM3 (150-450); RED BLOOD COUNT 4.53 MIL/MM3 (4.50-5.90); RED CELL DISTRIBUTION WIDTH 13.1 % (11.6-17.2); REVIEW FLAG FINAL
[2016-12-10 08:28] LABS: MAGNESIUM 2.2 MG/DL (1.5-2.5); POTASSIUM 3.7 MEQ/L (3.5-5.1)
--- NOTE | 2016-12-10 08:35 | HHI.PR ---
Subjective Remarks sr Objective Vital Signs Date Time Temp Pulse Resp B/P Pulse Ox O2 Delivery O2 Flow Rate FiO2 12/10/16 04:00 97.9 69 18 132/79 98 12/10/16 00:00 97.0 77 16 121/74 95 12/09/16 22:00 63 12/09/16 21:00 75 12/09/16 20:00 98.4 82 26 137/100 98 12/09/16 20:00 82 12/09/16 18:00 63 12/09/16 16:00 84 12/09/16 16:00 98.9 84 31 136/75 100 12/09/16 14:02 77 12/09/16 12:00 98.6 55 19 143/66 98 12/09/16 12:00 55 12/09/16 10:00 76 I/O 12/09/16 12/09/16 12/09/16 12/10/16 12/10/16 12/10/16 07:00 15:00 23:00 07:00 15:00 23:00 Intake Total 745 ml 1077 ml 480 ml 300 ml Output Total 1300 ml 700 ml 850 ml 675 ml Balance -555 ml 377 ml -370 ml -375 ml Intake Oral 240 ml 480 ml 480 ml 300 ml IV Total 505 ml 597 ml 0 ml Output Urine Total 1300 ml 700 ml 850 ml 675 ml # Bowel Movements 0 0 Result Diagram: 12/10/16 0701 12/10/16 07 Objective Remarks awake alert still dizzy and gaviria gone pupil= no nystag vff 5/ nad no change Assessment and Plan Assessment and Plan imp the r vert may have been cause of cva echo nl and holter pend still on statin hold asa for now ct no blood but some on mri observe for any afib nurse to print out some strips i dw nusu last noc stable overnoc mri stable still some blood there holding asa oob PT he can dc when steady on feet fu Mich Parker MD Dec 10, 2016 08:35
[2016-12-10] MEDS: LISINOPRIL 10 MG TAB PO SCH (09:13)
[2016-12-10] MEDS: SODIUM CHLORIDE 0.9% FLUSH 10 ML FLUSH IV FLUSH SCH ×2 (09:13→21:21)
[2016-12-10] MEDS: ACETAMINOPHEN 325 MG TAB PO PRN ×2 (09:13→21:21)
--- NOTE | 2016-12-10 12:37 | HHI.PR ---
Subjective Remarks This is a pleasant 61 y/o male who came to ER on 12/05/16 with right sided headache in the Occipital area and neck along with vomit, dizziness and vertigo, CT scan of the head obtained did not reveal any obvious abnormalities and neurology service was consulted and further workup with an MRI scan of the brain on 12/07/2016 revealed an area of infarct in the right medial aspect of the cerebellar hemisphere and vermis with a partial compression of the fourth ventricle but no obstructive hydrocephalus with normal size of the ventricles. 12/08/16 CT scan of the head does not reveal any progression of this infarct or development of any hydrocephalus. Right medical Cerebellar Hemisphere/ vermis infarct with compression of the fourth ventricle, Stable in his bedroom, was working in the [employer] with Physical therapy improving condition fast. Objective Vital Signs Date Time Temp Pulse Resp B/P Pulse Ox O2 Delivery O2 Flow Rate FiO2 12/10/16 11:40 96.0 84 12 123/81 97 12/10/16 10:00 64 12/10/16 08:51 97.3 63 12 123/74 95 12/10/16 04:00 97.9 69 18 132/79 98 12/10/16 00:00 97.0 77 16 121/74 95 12/09/16 22:00 63 12/09/16 21:00 75 12/09/16 20:00 98.4 82 26 137/100 98 12/09/16 20:00 82 12/09/16 18:00 63 12/09/16 16:00 84 12/09/16 16:00 98.9 84 31 136/75 100 12/09/16 14:02 77 I/O 12/09/16 12/09/16 12/09/16 12/10/16 12/10/16 12/10/16 07:00 15:00 23:00 07:00 15:00 23:00 Intake Total 745 ml 1077 ml 480 ml 300 ml Output Total 1300 ml 700 ml 850 ml 675 ml Balance -555 ml 377 ml -370 ml -375 ml Intake Oral 240 ml 480 ml 480 ml 300 ml IV Total 505 ml 597 ml 0 ml Output Urine Total 1300 ml 700 ml 850 ml 675 ml # Bowel Movements 0 0 Result Diagram: 12/10/16 0701 12/10/16 07 Imaging Last Impressions Brain MRI 12/09/16 0600 Signed Impressions: Service Date/Time: Friday, December 09, 2016 10:13 - CONCLUSION: 1. Acute hemorrhagic infarct involving the right cerebellum in the PICA artery distribution without significant mass effect or midline shift. Mich Walden MD Head CT 12/08/16 0400 Signed Impressions: Service Date/Time: Thursday, December 08, 2016 02:28 - CONCLUSION: Stable nonhemorrhagic infarction involving the right cerebellar hemisphere. Mateo Connor Jr., MD Neck Magnetic Resonance Angiography 12/07/16 1324 Signed Impressions: Service Date/Time: Wednesday, December 07, 2016 16:34 - CONCLUSION: 1. Poor flow in proximal and mid right vertebral artery. Cannot exclude thrombosis or stenosis. Left vertebral and carotid arteries are patent. Dino Ch MD Neck CTA 12/06/16 0000 Signed Impressions: Service Date/Time: Tuesday, December 06, 2016 01:01 - CONCLUSION: No significant arterial vascular abnormality is identified in the neck. Trell Hill MD Head CTA 12/06/16 0000 Signed Impressions: Service Date/Time: Tuesday, December 06, 2016 01:01 - CONCLUSION: No acute intracranial vascular abnormality is identified. Trell Hill MD Procedures No procedures performed. Other Results Laboratory Tests Test 12/06/16 12/07/16 12/07/16 12/08/16 05:00 06:11 15:00 05:08 Total Bilirubin 0.4 MG/DL Aspartate Amino Transf 15 U/L (AST/SGOT) Alanine Aminotransferase 24 U/L (ALT/SGPT) Alkaline Phosphatase 63 U/L Total Protein 6.6 GM/DL Albumin 3.6 GM/DL Neutrophils (%) (Auto) 83.8 % Lymphocytes (%) (Auto) 12.7 % Monocytes (%) (Auto) 3.3 % Eosinophils (%) (Auto) 0.0 % Basophils (%) (Auto) 0.2 % Neutrophils # (Auto) 7.8 TH/MM3 Lymphocytes # (Auto) 1.2 TH/MM3 Monocytes # (Auto) 0.3 TH/MM3 Eosinophils # (Auto) 0.0 TH/MM3 Basophils # (Auto) 0.0 TH/MM3 CBC Comment DIFF FINAL Differential Comment Erythrocyte Sedimentation Rate 7 mm/hr Hemoglobin A1c 5.2 % Total Creatine Kinase 82 U/L Troponin I LESS THAN 0.02 NG/ML Triglycerides Level 61 MG/DL Cholesterol Level 186 MG/DL LDL Cholesterol 129 MG/DL HDL Cholesterol 44.9 MG/DL Cholesterol/HDL Ratio 4.14 RATIO Vitamin B12 Level 337 PG/ML Free Thyroxine 1.05 NG/DL Thyroid Stimulating Hormone 0.692 uIU/ML 3rd Gen Urine Color COLORLESS Urine Turbidity CLEAR Urine pH 6.5 Urine Specific [place] 1.005 Urine Protein TRACE mg/dL Urine Glucose (UA) NEG mg/dL Urine Ketones NEG mg/dL Urine Occult Blood SMALL Urine Nitrite NEG Urine Bilirubin NEG Urine Urobilinogen LESS THAN 2.0 MG/DL Urine Leukocyte Esterase NEG Urine RBC 7 /hpf Urine WBC 1 /hpf Microscopic Urinalysis Comment CULT NOT INDICATED Anti-Nuclear Antibody Screen NEG Rapid Plasma Reagin NON-REACTIVE Test 12/08/16 12/09/16 12/10/16 08:16 04:35 07:01 Nasal Screen MRSA (PCR) NEGATIVE Phosphorus Level 3.3 MG/DL White Blood Count 6.0 TH/MM3 Red Blood Count 4.53 MIL/MM3 Hemoglobin 13.6 GM/DL Hematocrit 40.2 % Mean Corpuscular Volume 88.7 FL Mean Corpuscular Hemoglobin 30.1 PG Mean Corpuscular Hemoglobin 34.0 % Concent Red Cell Distribution Width 13.1 % Platelet Count 188 TH/MM3 Mean Platelet Volume 8.5 FL Sodium Level 141 MEQ/L Potassium Level 3.7 MEQ/L Chloride Level 106 MEQ/L Carbon Dioxide Level 26.0 MEQ/L Anion Gap 9 MEQ/L Blood Urea Nitrogen 19 MG/DL Creatinine 1.31 MG/DL Estimat Glomerular Filtration 56 ML/MIN Rate Random Glucose 89 MG/DL Calcium Level 9.1 MG/DL Magnesium Level 2.2 MG/DL Objective Remarks GENERAL: Well-developed well-nourished. In no acute distress. SKIN: Warm and dry. No lesions noted. HEENT: Normocephalic. Pupils equal and round and reactive to light. Mucous membranes pink and moist. CARDIOVASCULAR: Regular rate and rhythm. No murmur appreciated. RESPIRATORY: No accessory muscle use. Clear to auscultation. Breath sounds equal bilaterally. GASTROINTESTINAL: Abdomen soft, non-tender, nondistended. Bowel sounds x4. MUSCULOSKELETAL: No obvious deformities. No clubbing or cyanosis. No edema. NEUROLOGICAL: Awake and alert. No focal neurological deficits. Moves upper and lower extremities spontaneously, 5/5 strength. Normal speech. PSYCHIATRIC: Appropriate mood and affect; insight and judgment normal. Medications and IVs Current Medications Medications (Trade) Dose Ordered Sig/[place] Route Start Time Stop Time Status Last Admin (NS Flush) 2 ml UNSCH PRN IV FLUSH 12/06/16 03:30 (NS Flush) 2 ml BID IV FLUSH 12/06/16 09:00 12/10/16 09:13 (Zofran Inj) 4 mg Q6H PRN IVP 12/06/16 03:30 (Dulcolax Supp) 10 mg DAILY PRN RECTAL 12/06/16 03:30 (Tylenol) 650 mg Q6H PRN PO 12/06/16 03:30 12/10/16 09:13 ([place] 5-325 Mg) 1 tab Q4H PRN PO 12/06/16 03:30 (Antivert) 25 mg Q8H PO 12/06/16 13:00 12/10/16 06:14 Miscellaneous Information "NO BLOOD THINNERS FOR PT" Q8H .XX 12/07/16 22:00 12/10/16 06:00 Miscellaneous Information Patient in critical care unit? Ass... Q361D .XX 12/08/16 03:00 (Chlorhexidine 2% Cloth) 3 pack DAILY@04 TOPICAL 12/08/16 04:00 12/12/16 04:01 12/09/16 04:00 (Chlorhexidine 2% Cloth) 3 pack UNSCH PRN TOPICAL 12/08/16 03:00 12/13/16 02:58 (Lipitor) 80 mg HS PO 12/08/16 21:00 12/09/16 19:42 (Vasotec Inj) 1.25 mg Q6H PRN IV PUSH 12/09/16 16:15 ([place]) 0.2 mg Q6H PRN PO 12/09/16 16:15 (Prinivil) 10 mg DAILY PO 12/09/16 16:15 12/10/16 09:13 A/P Assessment and Plan Acute CVA Acute onset vertigo/dizziness w/ associated nausea/vomiting. Reported similar episodes x3 months, has not been evaluated in the past. CT Head w/ no acute findings. LP offered by ER physician, however pt declined. CTA Head/Neck negative for acute findings. Neurology was consulted. MRI showed: Acute infarct in the medial aspect of the right cerebellar hemisphere. MRA showed: Poor flow in proximal and mid right vertebral artery; Cannot exclude thrombosis or stenosis. The pt was transferred to the ICU. Echo with normal EF. MRI 12/09 showed : Acute hemorrhagic infarct involving the right cerebellum in the PICA artery distribution without significant mass effect or midline shift. No surgical intervention indicated per neurosurgery.working with PT and OT, Aspirin on Hold due to Hemorrhagic infarct, continue Neuro checks. Holter Pending, can be discharged when steady on feet and follow Holter as per Neurology specialist Doctor Mich Varghese. Hypokalemia/ Hypophosphatemia/ Hypocalcemia Possibly s/y decreased PO intake. - Given Potassium Chloride 20 meq by mouth today. MIGUEL Creatinine 1.3, stable continue monitoring he is on Lisinopril. DVT Prophylaxis: SCD/Teds. Discharge Planning once cleared by neurology specialist. Sarthak Jang MD Dec 10, 2016 12:37 DVT Prophylaxis: SCD/Teds. Sarthak Jang MD Dec 10, 2016 12:37
[2016-12-10] MEDS ORDERED: POTASSIUM CHLORIDE 20 MEQ CONTROLLED RELEASE TAB PO ONE (20:00)
[2016-12-10] MEDS: ATORVASTATIN 80 MG TAB PO SCH (21:22)
[2016-12-11] VITALS: BP 114/67; PULSE 69; RESP 18; TEMP 97.2; O2SAT 96
[2016-12-11 04:00] VITALS: BP 125/76; PULSE 74; RESP 18; TEMP 96.3; O2SAT 96
[2016-12-11] MEDS: CHLORHEXIDINE GLUCONATE 2 % 1 PACK (2 CLOTHS)(taper/protocol) TOPICAL SCH (04:39)
[2016-12-11] MEDS: MECLIZINE HCL 25 MG TAB PO SCH ×2 (05:23→14:12)
[2016-12-11 08:00] VITALS: BP 121/79; PULSE 70; RESP 18; TEMP 96.8; O2SAT 96
--- NOTE | 2016-12-11 08:41 | HHI.PR ---
Subjective Remarks sr Objective Vital Signs Date Time Temp Pulse Resp B/P Pulse Ox O2 Delivery O2 Flow Rate FiO2 12/11/16 04:00 96.3 74 18 125/76 96 12/11/16 00:00 97.2 69 18 114/67 96 12/10/16 21:15 93 12/10/16 20:00 97.3 84 18 143/96 93 12/10/16 16:23 96.4 77 12 118/80 97 12/10/16 11:40 96.0 84 12 123/81 97 12/10/16 10:00 64 12/10/16 08:51 97.3 63 12 123/74 95 I/O 12/10/16 12/10/16 12/10/16 12/11/16 12/11/16 12/11/16 07:00 15:00 23:00 07:00 15:00 23:00 Intake Total 300 ml 0 ml Output Total 675 ml 800 ml Balance -375 ml 0 ml -800 ml Intake Oral 300 ml IV Total 0 ml Output Urine Total 675 ml 800 ml # Voids 3 # Bowel Movements 1 Result Diagram: 12/10/16 0701 12/10/16 0701 Procedures No procedures performed. Objective Remarks awake alert minimal dizzy pupil= no nystag vff 01/09 nad no change nl gait alitttle lean back not bad Assessment and Plan Assessment and Plan imp the r vert may have been cause of cva echo nl and holter pend still on statin hold asa for now start in one week [address] no blood but some on mri observe i dw nusu last noc stable overnoc mri stable still some blood there oob PT he can dc home today run bp 110-130/ not too low Mich Varghese MD Dec 11, 2016 08:41
[2016-12-11 09:19] VITALS: PULSE 65
[2016-12-11] MEDS: LISINOPRIL 10 MG TAB PO SCH (09:19)
[2016-12-11] MEDS: SODIUM CHLORIDE 0.9% FLUSH 10 ML FLUSH IV FLUSH SCH (09:19)
[2016-12-11 12:00] VITALS: BP 97/60; PULSE 92; RESP 20; TEMP 96.9; O2SAT 96
--- NOTE | 2016-12-11 13:30 | HHI.PR ---
Subjective Remarks Follow up CVA, dizziness. The patient was seen in the hallway with his . He speaks some Brazilian. He requested that I speak with him there and speak with his son via speakerphone to translate. He states that he feels better today. Still having intermittent dizziness. No chest pain, dyspnea. Objective Vitals Vital Signs Date Time Temp Pulse Resp B/P Pulse Ox O2 Delivery O2 Flow Rate FiO2 12/11/16 12:00 96.9 92 20 97/60 96 12/11/16 08:00 96.8 70 18 121/79 96 12/11/16 04:00 96.3 74 18 125/76 96 12/11/16 00:00 97.2 69 18 114/67 96 12/10/16 21:15 93 12/10/16 20:00 97.3 84 18 143/96 93 12/10/16 16:23 96.4 77 12 118/80 97 I/O 12/10/16 12/10/16 12/10/16 12/11/16 12/11/16 12/11/16 07:00 15:00 23:00 07:00 15:00 23:00 Intake Total 300 ml 0 ml Output Total 675 ml 800 ml Balance -375 ml 0 ml -800 ml Intake Oral 300 ml IV Total 0 ml Output Urine Total 675 ml 800 ml # Voids 3 # Bowel Movements 1 Result Diagram: 12/10/16 0701 12/10/16 0701 Imaging Last Impressions Brain MRI 12/09/16 0600 Signed Impressions: Service Date/Time: Friday, December 09, 2016 10:13 - CONCLUSION: 1. Acute hemorrhagic infarct involving the right cerebellum in the PICA artery distribution without significant mass effect or midline shift. Mich Walden MD Head CT 12/08/16 0400 Signed Impressions: Service Date/Time: Thursday, December 08, 2016 02:28 - CONCLUSION: Stable nonhemorrhagic infarction involving the right cerebellar hemisphere. Mateo Connor Jr., MD Neck Magnetic Resonance Angiography 12/07/16 1324 Signed Impressions: Service Date/Time: Wednesday, December 07, 2016 16:34 - CONCLUSION: 1. Poor flow in proximal and mid right vertebral artery. Cannot exclude thrombosis or stenosis. Left vertebral and carotid arteries are patent. Dino Ch MD Neck CTA 12/06/16 0000 Signed Impressions: Service Date/Time: Tuesday, December 06, 2016 01:01 - CONCLUSION: No significant arterial vascular abnormality is identified in the neck. Trell Hill MD Head CTA 12/06/16 0000 Signed Impressions: Service Date/Time: Tuesday, December 06, 2016 01:01 - CONCLUSION: No acute intracranial vascular abnormality is identified. rTell Hill MD Objective Remarks General: No acute distress. Heart: Regular rate and rhythm. No murmur. Lungs: Clear to auscultation bilaterally. No wheezes, rales, or rhonchi. Breathing is nonlabored. Abdomen: Soft, nontender, nondistended. Extremities: No lower extremity edema. Psych: Alert and oriented. Urinary Catheter: No Vascular Central Line Catheter: No A/P Problem List: (1) Vertigo ICD Code: R42 Status: Acute (2) Nausea & vomiting ICD Code: R11.2 Status: Acute (3) Hypokalemia ICD Code: E87.6 Status: Acute (4) Hypocalcemia ICD Code: E83.51 Status: Acute (5) MIGUEL (acute kidney injury) ICD Code: N17.9 Status: Acute (6) Acute CVA (cerebrovascular accident) ICD Code: I63.9 Status: Acute Assessment and Plan 1. Acute CVA: Patient had acute onset of vertigo with associated nausea and vomiting. Head CT and MRI show acute infarct of the right cerebellar hemisphere area appreciate neurology recommendations. Aspirin on hold secondary to hemorrhagic infarct. Continue neuro checks. 2. Hypokalemia: Improved following supplementation. 3. Acute kidney injury: Stable. Monitor labs. 4. Hypertension: Continue lisinopril. 5. DVT prophylaxis: BROCK Kim. Avoid chemical prophylaxis secondary to hemorrhagic infarct. Discharge Planning Plan for discharge home when cleared by physical therapy. Problem Qualifiers (1) Nausea & vomiting: Qualified Code: R11.2 - Nausea and vomiting, intractability of vomiting not specified, unspecified vomiting type Nando Quick MD Dec 11, 2016 13:30
[2016-12-11] MEDS ORDERED: ATOR1TAB18 PO (13:49)
[2016-12-11] MEDS ORDERED: LISI10TA3 PO (13:49)
[2016-12-11] MEDS ORDERED: MECL-62 PO (13:49)
[2016-12-11] MEDS ORDERED: ASPI1TAB69 PO (13:49)
--- NOTE | 2016-12-11 13:50 | HHI.DCPOC ---
Discharge Care Plan Diagnosis: (1) Hypokalemia (2) Vertigo (3) Acute CVA (cerebrovascular accident) Goals to Promote Your Health * To prevent worsening of your condition and complications * To maintain your health at the optimal level Directions to Meet Your Goals Take your medications as prescribed Follow your dietary instruction Follow activity as directed Keep your appointments as scheduled Take your immunizations and boosters as scheduled If your symptoms worsen call your PCP, if no PCP go to Urgent Care Center or Emergency Room Smoking is Dangerous to Your Health. Avoid second hand smoke Call the 24-hour hour crisis hotline for domestic abuse at Nando Quick MD Dec 11, 2016 13:50
[2016-12-11 16:00] VITALS: BP 119/82; PULSE 83; RESP 20; TEMP 97.5; O2SAT 97
--- NOTE | 2016-12-14 16:46 | HHI.DS ---
Discharge Summary Admission Date Dec 06, 2016 at 23:00 Discharge Date: Dec 11, 2016 Admitting Diagnosis (1) Vertigo ICD Code: R42 (2) Nausea & vomiting ICD Code: R11.2 (3) Hypokalemia ICD Code: E87.6 (4) Hypocalcemia ICD Code: E83.51 (5) MIGUEL (acute kidney injury) ICD Code: N17.9 (6) Acute CVA (cerebrovascular accident) ICD Code: I63.9 Procedures None Brief History - From Admission This is a 61-year-old Mongolian male with no significant PMH was brought to the ER by EMS secondary to acute onset of headache, dizziness, nausea and vomiting starting earlier this evening. Pt is non-French speaking, history obtained from [employer] translation services, pt's and sons also available for translation. Per report, pt and visiting [facility], had dinner at [email or web address], shortly after pt complained of dizziness, headache and had multiple episodes of nausea/vomiting. On arrival, BP 140/87, HR 70, O2 sat 99% on RA, Afebrile. CBC essentially unremarkable. K+ 2.6. Creatinine 1.31, no previous labs for comparison. Ca 7.3. INR 1.0. CT Head negative for acute findings. In light of symptoms, pt offered LP by ER physician, however pt declined. CTA Head/Neck negative for acute findings. S/p Compazine, Benadryl and Morphine w/ some improvement. CBC/BMP: 12/10/16 0701 12/10/16 0701 Imaging Last Impressions Brain MRI 12/09/16 0600 Signed Impressions: Service Date/Time: Friday, December 09, 2016 10:13 - CONCLUSION: 1. Acute hemorrhagic infarct involving the right cerebellum in the PICA artery distribution without significant mass effect or midline shift. Mich Walden MD Head CT 12/08/16 0400 Signed Impressions: Service Date/Time: Thursday, December 08, 2016 02:28 - CONCLUSION: Stable nonhemorrhagic infarction involving the right cerebellar hemisphere. Mateo Connor Jr., MD Neck Magnetic Resonance Angiography 12/07/16 1324 Signed Impressions: Service Date/Time: Wednesday, December 07, 2016 16:34 - CONCLUSION: 1. Poor flow in proximal and mid right vertebral artery. Cannot exclude thrombosis or stenosis. Left vertebral and carotid arteries are patent. Dino Ch MD Neck CTA 12/06/16 0000 Signed Impressions: Service Date/Time: Tuesday, December 06, 2016 01:01 - CONCLUSION: No significant arterial vascular abnormality is identified in the neck. Trell Hill MD Head CTA 12/06/16 0000 Signed Impressions: Service Date/Time: Tuesday, December 06, 2016 01:01 - CONCLUSION: No acute intracranial vascular abnormality is identified. Trell Hill MD PE at Discharge General: No acute distress. Heart: Regular rate and rhythm. No murmur. Lungs: Clear to auscultation bilaterally. No wheezes, rales, or rhonchi. Breathing is nonlabored. Abdomen: Soft, nontender, nondistended. Extremities: No lower extremity edema. Psych: Alert and oriented. Hospital Course The patient was admitted for further workup of vertigo. His symptoms persisted. Neurology was consulted. MRI showed acute CVA in the right cerebellar hemisphere. Neurosurgery was consulted. Nonoperative treatment was recommended. PT and OT were continued. The patient showed improvement of his symptoms during the hospitalization. He was cleared for discharge by neurology. Recommendations were made by physical therapy for the patient to pursue outpatient physical therapy and vestibular rehabilitation. He was felt to be stable for discharge home. Pt Condition on Discharge: Stable Discharge Disposition: Discharge Home Discharge Time: > 30 minutes Discharge Instructions DIET: Follow Instructions for: Heart Healthy Diet Activities you can perform: Regular-No Restrictions Other Activity Instructions: With assistive device. Follow up Referrals: Neurology - 1 Week PCP Follow-up - 1 Week Physical Therapy New Medications: Aspirin (Aspirin) 81 Mg Tabdr 81 MG PO DAILY START ON 12/18/16 Stroke Prevention #30 Ref 0 TAB Atorvastatin (Atorvastatin) 80 Mg Tab 80 MG PO HS CVA #30 Ref 0 TAB Lisinopril (Lisinopril) 10 Mg Tab 10 MG PO DAILY CVA #30 Ref 0 TAB Meclizine (Meclizine) 25 Mg Tab 25 MG PO Q8H PRN Dizziness #30 Ref 0 TAB Nando Quick MD Dec 14, 2016 16:45
--- NOTE | 2016-12-16 11:56 | HM ---
Date Performed: 12/09/2016 Time Performed: 16:40:00 HOOKUP DATE: 12/09/16 04:40:00 PM Tue ANALYSIS START TIME: 12/09/2016 4:45:00 PM ANALYSIS END TIME: 12/10/2016 4:49:00 PM PATIENT AGE: 61 PATIENT HEIGHT: 67 PATIENT WEIGHT: 138 DRUG LIST: ROOM # [id number] PATIENT DIAGNOSIS: VERTIGO GARCIA HYPO K TEST NARRATIVE: The patient's average heart rate was 71 BPM. Heart rates greater than 120 B PM were noted < 1% of the time. No episodes of bradycardia were noted. No pauses exceeding 2.0 s econds were noted. 2 ventricular ectopics, which represented < 1% of the total beat count, were n oted. The highest ventricular ectopic frequency occurred from 05:00 PM to 06:00 PM Tue. During this time 1 VE(s) occurred. Ventricular ectopics were observed as 2 isolated beat(s) only. No couplets or runs were noted. No supraventricular ectopics were noted. No episodes of ST depression (de fined as -1.0 mm or more) were noted in channel 1. No episodes of ST depression (defined as -1.0 mm or more) were noted in channel 2. No episodes of ST depression (defined as -1.0 mm or more) were not ed in channel 3. TEST INTERPRETATION: Benign Holter Monitor Signed by : Jerrell Encinas
== END 2016-12-11 19:33 | disposition home or self-care (01) | DRG 65 ==
LOC: NEPC 22:32 → NEDA 12-06 03:20 → UNDOADMOB 12-06 04:15 → NEDA 12-06 06:10 → NEPGCP 12-06 06:10 → INTOOBSV 12-06 23:00 → OBSVTOIN 12-06 23:00 → NEPGCP 12-08 02:35 → HIME 12-08 02:35 → N05A 12-09 23:09 → HIME 12-09 23:09 → N05A 12-09 23:13 → HIME 12-09 23:13 → N05A 12-09 23:19 → UNDODISOB 12-11 19:33
PROVIDERS: ADMIT Family Medicine; ATTEND Family Medicine
DX: I63.8 Other cerebral infarction (principal); N17.9 Acute kidney failure, unspecified; E83.51 Hypocalcemia; E83.39 Other disorders of phosphorus metabolism; E87.6 Hypokalemia; R11.2 Nausea with vomiting, unspecified; N18.9 Chronic kidney disease, unspecified; I10 Essential (primary) hypertension; R73.9 Hyperglycemia, unspecified
CPT/HCPCS: 70450; 70496; 70498; 70548; 70551; 70553; 80048; 80053; 80061; 81001; 82550; 82607; 83036; 83735; 84100; 84439; 84443; 84484; 85025; 85027; 85610; 85652; 85730; 86038; 86592; 87641; 93005; 93225; 93226; 93306; 96365; 96366; 96375; A9579; G0378; G8987-GP; G8988-GP; J0610; J0780; J1200; J2060; J2270; J3480; J7030; J7050; Q9967